=== PATIENT | male | born 1955 | race Caucasian/White ===

== ENCOUNTER 2017-10-14 18:10 | Observation (INO) | payer OTHER, MEDICAID ==
[~2017-10-14] VITALS: Ht 172.7 cm; Wt 95.3 kg
[~2017-10-14 18:10] MED LIST: ALBU0.084; ALBU18; BECL80AE9; MECL-87; PANTOPRAZOLE; PROP80CA10
[2017-10-14] MEDS ORDERED: GASTROGRAFIN 30 ML SOL XX ONE (19:30)
[2017-10-14] MEDS ORDERED: GASTROGRAFIN 120 ML SOL ONE (19:55)
[2017-10-15 00:17] VITALS: BP 121/79
== END 2017-10-15 01:09 | disposition home or self-care (01) | DRG 156 ==
LOC: ER 18:11 → OVERFLOW 22:32 → ER 10-15 01:09
PROVIDERS: ADMIT Emergency Medicine; ATTEND Emergency Medicine
DX: T17.308A Unspecified foreign body in larynx causing other injury, initial encounter (principal); T18.9XXA Foreign body of alimentary tract, part unspecified, initial encounter; Y92.89 Other specified places as the place of occurrence of the external cause; Z82.49 Family history of ischemic heart disease and other diseases of the circulatory system; Z87.891 Personal history of nicotine dependence; Z79.899 Other long term (current) drug therapy; J44.9 Chronic obstructive pulmonary disease, unspecified; I10 Essential (primary) hypertension; I70.0 Atherosclerosis of aorta
CPT/HCPCS: 71045; 74220; 99285; G0378; Q9963; 93005

== ENCOUNTER → 2017-10-23 | Outpatient (CLI) | payer OTHER, MEDICAID ==
[~2017-10-23] VITALS: Ht 30.5 cm; Wt 0.5 kg
[~2017-10-23] MED LIST changes: +ALBUTEROL SULF 2.5 MG/0.5ML(0.5%) NEB SOLN NEB ONE; +ALBUTEROL SULF 2.5 MG/0.5ML(0.5%) NEB SOLN ONE
[2017-10-23 10:55] VITALS: BP 113/74
[2017-10-23 11:20] VITALS: BP 133/84
== END | disposition home or self-care (01) ==
LOC: Rad HDHVI 09:42
PROVIDERS: ATTEND Internal Medicine Cardiovascular Disease
DX: J44.9 Chronic obstructive pulmonary disease, unspecified (principal); I73.9 Peripheral vascular disease, unspecified; R94.31 Abnormal electrocardiogram [ECG] [EKG]; B19.20 Unspecified viral hepatitis C without hepatic coma; K74.60 Unspecified cirrhosis of liver; I10 Essential (primary) hypertension; R09.89 Other specified symptoms and signs involving the circulatory and respiratory systems; G89.4 Chronic pain syndrome
CPT/HCPCS: 78452; 93005; 94640; 96374; 96375; A9500; G0463

== ENCOUNTER → 2017-10-28 | Outpatient (CLI) | payer OTHER, MEDICAID ==
[~2017-10-28] MED LIST changes: -ALBUTEROL SULF 2.5 MG/0.5ML(0.5%) NEB SOLN NEB ONE; -ALBUTEROL SULF 2.5 MG/0.5ML(0.5%) NEB SOLN ONE
== END | disposition home or self-care (01) ==
LOC: Rad HDHVI 13:48
PROVIDERS: ATTEND Internal Medicine Cardiovascular Disease
DX: I73.9 Peripheral vascular disease, unspecified (principal); R94.31 Abnormal electrocardiogram [ECG] [EKG]; R09.89 Other specified symptoms and signs involving the circulatory and respiratory systems
CPT/HCPCS: 93306; 93880

== ENCOUNTER 2018-02-16 13:04 | Inpatient (IN) | payer OTHER, MEDICAID ==
[~2018-02-16] VITALS: Ht 177.8 cm; Wt 95.8 kg
[2018-02-16 13:40] LABS: Basophils # (auto) 0 uL; Basophils % (auto) 0.8 % (0.0-2.0); Eosinophils # (auto) 0.1 uL; Eosinophils % (auto) 1.6 % (0.0-7.0); Hematocrit 44.8 % (41.0-53.0); Hemoglobin 15.1 g/dL (13.5-17.5); Lymphocytes # (auto) 0.5 uL; Mean Corpuscular Hgb Conc. 33.7 g/dL (32.0-36.0); Mean Corpuscular Volume 94.8 fL (80.0-100.0); Monocytes # (auto) 0.5 uL; Monocytes % (auto) 8.4 % (0.0-12.0); Neutrophils # (auto) 4.3 uL; Neutrophils % (auto) 79.2 % (37.0-80.0); Nucleated Red Blood Cells % 0.1 %; Platelet Count (auto) 94 10^3/uL (140-450); Red Blood Cells 4.73 10^6/uL (4.5-5.90); Red Cell Distribution Width 14.3 % (11.8-14.3); White Blood Cell 5.4 10^3/uL (4.4-10.8)
[2018-02-16] MEDS ORDERED: ASPirin 81 mg TAB PO ONE (13:45)
[2018-02-16 13:54] LABS: INR 1.06 (0.9-1.15); Partial Thromboplastin Time 25.7 sec (23.78-33.04); Prothrombin Time 11.3 sec (9.27-12.13)
[2018-02-16 14:09] LABS: Alanine Aminotransferase 27 U/L (16-61); Albumin 4.1 g/dL (3.4-5.0); Alkaline Phosphatase 81 U/L (45-117); Anion Gap 7 (5-15); Aspartate Aminotransferase 24 U/L (15-37); BUN/Creatinine Ratio 12.2; Bilirubin, Total 0.8 mg/dL (0.2-1.0); Blood Urea Nitrogen 12 mg/dL (7-18); Carbon Dioxide 23 mmol/L (21-32); Chloride 109 mmol/L (98-107); GFR African American 99 mL/min; GFR Non-African American 82 mL/min; Glucose 79 mg/dL (74-106); Potassium 4.2 mmol/L (3.5-5.1); Sodium 139 mmol/L (136-145); Total Protein 7.6 g/dL (6.4-8.2)
[2018-02-16] MEDS ORDERED: LABETALOL HCL 5 MG/ML ML 20ML VIAL IV ONE (14:15)
[2018-02-16] MEDS ORDERED: METOPROLOL TARTRATE 50 MG TAB PO ONE ×2 (15:00→17:15)
[2018-02-16] MEDS ORDERED: MORPHINE SULFATE 8mg/ml INJ SDV IV PRN (15:00)
[2018-02-16] MEDS ORDERED: METOPROLOL TARTRATE 1MG/1ML-5ML VIAL IV PRN (15:00)
[2018-02-16] MEDS ORDERED: NITROGLYCERIN 0.4 MG SL TAB SL PRN (15:00)
[2018-02-16 15:18] VITALS: BP 151/95
[2018-02-16] MEDS: FUROSEMIDE 40 MG/4 ML VIAL IV SCH (17:58)
[2018-02-16] MEDS: HYDROcodone-ACET 5/325MG TAB PO PRN (18:02)
[2018-02-16] MEDS: POTASSIUM CHL 20 Meq TABLET PO SCH (18:03)
[2018-02-16] MEDS: BUDESONIDE (INHALATION) 0.5 MG/2 ML NEB NEB SCH (18:26)
[2018-02-16] MEDS: ALBUTEROL SULF 2.5 MG/0.5ML(0.5%) NEB SOLN NEB PRN (18:26)
[2018-02-16] MEDS: IPRATROPIUM BROM 0.5 MG/2.5ML INH SOL NEB SCH ×2 (18:26→23:04)
[2018-02-16 21:00] VITALS: BP 136/85
[2018-02-16 21:16] LABS: Urine Bacteria NONE SEEN /hpf (None Seen); Urine Blood Negative /uL (Negative); Urine Mucus FEW (None Seen); Urine WBC 1 /hpf (0 - 3)
[2018-02-16] MEDS: AMITRIPTYLINE HCL 25 MG TAB PO SCH (21:50)
[2018-02-16] MEDS: APIXABAN 5 MG TAB PO SCH (21:50)
[2018-02-16] MEDS: METOPROLOL TARTRATE 50 MG TAB PO SCH (21:51)
[2018-02-16] MEDS: MONTELUKAST SODIUM 10 MG TAB PO SCH (21:53)
[2018-02-16 22:00] VITALS: BP 136/85
[2018-02-16] MEDS ORDERED: METOPROLOL TARTRATE 50 MG TAB PO SCH (22:00)
[2018-02-17] MEDS ORDERED: AMITRIP PO (04:06)
[2018-02-17] MEDS ORDERED: HYDR-4683 PO (04:06)
[2018-02-17] MEDS ORDERED: METH500T6 PO (04:06)
[2018-02-17] MEDS ORDERED: ASPI81CH43 PO (04:07)
[2018-02-17 04:48] VITALS: BP 114/85
[2018-02-17] MEDS: IPRATROPIUM BROM 0.5 MG/2.5ML INH SOL NEB SCH ×3 (06:47→19:00)
[2018-02-17] MEDS: BUDESONIDE (INHALATION) 0.5 MG/2 ML NEB NEB SCH ×2 (06:48→19:01)
[2018-02-17] MEDS: ALBUTEROL SULF 2.5 MG/0.5ML(0.5%) NEB SOLN NEB PRN ×2 (06:48→12:27)
[2018-02-17 07:11] LABS: Anion Gap 8 (5-15); BUN/Creatinine Ratio 13.3; Blood Urea Nitrogen 16 mg/dL (7-18); Calcium 8.9 mg/dL (8.5-10.1); Carbon Dioxide 26 mmol/L (21-32); Chloride 107 mmol/L (98-107); GFR African American 79 mL/min; GFR Non-African American 65 mL/min; Glucose 81 mg/dL (74-106); Sodium 141 mmol/L (136-145)
[2018-02-17] MEDS: HYDROcodone-ACET 5/325MG TAB PO PRN ×2 (08:24→18:40)
[2018-02-17 09:00] VITALS: BP 100/63
[2018-02-17] MEDS: POTASSIUM CHL 20 Meq TABLET PO SCH (09:49)
[2018-02-17] MEDS: APIXABAN 5 MG TAB PO SCH ×2 (09:49→21:53)
[2018-02-17] MEDS: FUROSEMIDE 40 MG/4 ML VIAL IV SCH (09:50)
[2018-02-17] MEDS: METOPROLOL TARTRATE 50 MG TAB PO SCH ×2 (09:51→21:54)
[2018-02-17] MEDS ORDERED: METHOCARBAMOL 500 MG TAB PO ONE (12:15)
[2018-02-17 13:00] VITALS: BP 120/86
[2018-02-17 17:00] VITALS: BP 113/86
[2018-02-17] MEDS ORDERED: METOPROLOL TARTRATE 50 MG TAB PO ONE (18:30)
[2018-02-17] MEDS: AMITRIPTYLINE HCL 25 MG TAB PO SCH (21:53)
[2018-02-17] MEDS: METHOCARBAMOL 500 MG TAB PO SCH (21:54)
[2018-02-17] MEDS: MONTELUKAST SODIUM 10 MG TAB PO SCH (21:54)
[2018-02-17 22:00] VITALS: BP 117/90
[2018-02-18 05:00] VITALS: BP 114/98
[2018-02-18 05:59] LABS: Basophils # (auto) 0 uL; Basophils % (auto) 0.6 % (0.0-2.0); Eosinophils # (auto) 0.2 uL; Eosinophils % (auto) 3.8 % (0.0-7.0); Hematocrit 45.8 % (41.0-53.0); Hemoglobin 15.4 g/dL (13.5-17.5); Lymphocytes # (auto) 0.8 uL; Lymphocytes % (auto) 16.2 % (10.0-50.0); Mean Corpuscular Hemoglobin 32.1 pg (28.0-32.0); Mean Corpuscular Hgb Conc. 33.6 g/dL (32.0-36.0); Mean Corpuscular Volume 95.3 fL (80.0-100.0); Monocytes # (auto) 0.7 uL; Monocytes % (auto) 13.3 % (0.0-12.0); Neutrophils # (auto) 3.4 uL; Neutrophils % (auto) 66.1 % (37.0-80.0); Nucleated Red Blood Cells % 0.1 %; Platelet Count (auto) 109 10^3/uL (140-450); White Blood Cell 5.2 10^3/uL (4.4-10.8)
[2018-02-18 06:11] LABS: Calcium 8.9 mg/dL (8.5-10.1)
[2018-02-18 06:13] LABS: BUN/Creatinine Ratio 17.8
[2018-02-18] MEDS: BUDESONIDE (INHALATION) 0.5 MG/2 ML NEB NEB SCH ×2 (06:55→19:07)
[2018-02-18] MEDS: IPRATROPIUM BROM 0.5 MG/2.5ML INH SOL NEB SCH ×4 (06:55→19:08)
[2018-02-18 09:00] VITALS: BP 97/64
[2018-02-18] MEDS: HYDROcodone-ACET 5/325MG TAB PO PRN ×2 (09:12→21:41)
[2018-02-18] MEDS: POTASSIUM CHL 20 Meq TABLET PO SCH (09:25)
[2018-02-18] MEDS: APIXABAN 5 MG TAB PO SCH ×2 (09:25→21:26)
[2018-02-18] MEDS: METHOCARBAMOL 500 MG TAB PO SCH ×2 (09:27→21:27)
[2018-02-18] MEDS: METOPROLOL TARTRATE 50 MG TAB PO SCH (09:54)
[2018-02-18] MEDS: FUROSEMIDE 40 MG/4 ML VIAL IV SCH (09:56)
[2018-02-18 13:00] VITALS: BP 121/88
[2018-02-18 16:58] VITALS: BP 103/75
[2018-02-18 20:00] VITALS: BP 106/76
[2018-02-18] MEDS: AMITRIPTYLINE HCL 25 MG TAB PO SCH (21:26)
[2018-02-18] MEDS: MONTELUKAST SODIUM 10 MG TAB PO SCH (21:27)
[2018-02-18] MEDS: METOPROLOL SUCCINATE XL 50 MG TAB PO SCH (21:28)
[2018-02-18 22:00] VITALS: BP 106/76
[2018-02-19] MEDS: IPRATROPIUM BROM 0.5 MG/2.5ML INH SOL NEB SCH ×4 (02:29→19:54)
[2018-02-19 05:00] VITALS: BP 110/57
[2018-02-19 05:50] LABS: Basophils # (auto) 0 uL; Basophils % (auto) 0.5 % (0.0-2.0); Eosinophils # (auto) 0.2 uL; Eosinophils % (auto) 2.8 % (0.0-7.0); Hematocrit 44.7 % (41.0-53.0); Hemoglobin 15.5 g/dL (13.5-17.5); Lymphocytes # (auto) 1.1 uL; Lymphocytes % (auto) 19.4 % (10.0-50.0); Mean Corpuscular Hemoglobin 32.9 pg (28.0-32.0); Mean Corpuscular Hgb Conc. 34.6 g/dL (32.0-36.0); Monocytes # (auto) 0.7 uL; Monocytes % (auto) 11.4 % (0.0-12.0); Neutrophils # (auto) 3.9 uL; Neutrophils % (auto) 65.9 % (37.0-80.0); Nucleated Red Blood Cells % 0.1 %; Platelet Count (auto) 130 10^3/uL (140-450); Red Cell Distribution Width 14.2 % (11.8-14.3); White Blood Cell 5.9 10^3/uL (4.4-10.8)
[2018-02-19 06:03] LABS: BUN/Creatinine Ratio 21.5; Calcium 8.7 mg/dL (8.5-10.1); Potassium 4.2 mmol/L (3.5-5.1)
[2018-02-19] MEDS: BUDESONIDE (INHALATION) 0.5 MG/2 ML NEB NEB SCH ×2 (06:41→19:54)
[2018-02-19] MEDS: HYDROcodone-ACET 5/325MG TAB PO PRN ×2 (07:03→21:26)
[2018-02-19 08:00] VITALS: BP 100/82
[2018-02-19] MEDS: APIXABAN 5 MG TAB PO SCH ×2 (09:39→21:23)
[2018-02-19] MEDS: METHOCARBAMOL 500 MG TAB PO SCH ×2 (09:39→21:23)
[2018-02-19] MEDS: METOPROLOL SUCCINATE XL 50 MG TAB PO SCH ×2 (09:40→21:25)
[2018-02-19] MEDS: FUROSEMIDE 40 MG/4 ML VIAL IV SCH (09:41)
[2018-02-19] MEDS: POTASSIUM CHL 20 Meq TABLET PO SCH (09:41)
[2018-02-19 12:00] VITALS: BP_SYST 155; BP_SYST 99; BP_DIAS 69; BP_DIAS 71
[2018-02-19 17:00] VITALS: BP 112/82
[2018-02-19] MEDS: AMITRIPTYLINE HCL 25 MG TAB PO SCH (21:23)
[2018-02-19] MEDS: MONTELUKAST SODIUM 10 MG TAB PO SCH (22:00)
[2018-02-19 22:54] VITALS: BP 116/80
[2018-02-20] MEDS: IPRATROPIUM BROM 0.5 MG/2.5ML INH SOL NEB SCH ×3 (00:59→11:52)
[2018-02-20 05:40] VITALS: BP 111/74
[2018-02-20 05:42] LABS: Basophils # (auto) 0.1 uL; Basophils % (auto) 0.9 % (0.0-2.0); Eosinophils # (auto) 0.2 uL; Eosinophils % (auto) 3.7 % (0.0-7.0); Hematocrit 44.7 % (41.0-53.0); Hemoglobin 15.1 g/dL (13.5-17.5); Lymphocytes # (auto) 1.2 uL; Lymphocytes % (auto) 20.5 % (10.0-50.0); Mean Corpuscular Hemoglobin 32.2 pg (28.0-32.0); Mean Corpuscular Hgb Conc. 33.7 g/dL (32.0-36.0); Mean Corpuscular Volume 95.5 fL (80.0-100.0); Monocytes # (auto) 0.7 uL; Monocytes % (auto) 12.7 % (0.0-12.0); Neutrophils # (auto) 3.5 uL; Neutrophils % (auto) 62.2 % (37.0-80.0); Nucleated Red Blood Cells % 0.1 %; Platelet Count (auto) 124 10^3/uL (140-450); Red Blood Cells 4.68 10^6/uL (4.5-5.90); Red Cell Distribution Width 13.7 % (11.8-14.3); White Blood Cell 5.6 10^3/uL (4.4-10.8)
[2018-02-20 05:58] LABS: Calcium 8.7 mg/dL (8.5-10.1)
[2018-02-20 06:05] LABS: BUN/Creatinine Ratio 18.8
[2018-02-20] MEDS: BUDESONIDE (INHALATION) 0.5 MG/2 ML NEB NEB SCH (06:41)
[2018-02-20 08:39] VITALS: BP 109/84
[2018-02-20] MEDS: POTASSIUM CHL 20 Meq TABLET PO SCH (10:00)
[2018-02-20] MEDS: APIXABAN 5 MG TAB PO SCH (10:00)
[2018-02-20] MEDS: METHOCARBAMOL 500 MG TAB PO SCH (10:00)
[2018-02-20] MEDS: METOPROLOL SUCCINATE XL 50 MG TAB PO SCH (10:00)
== END 2018-02-20 12:00 | disposition home or self-care (01) | DRG 291 ==
LOC: ER 13:04 → TELE 13:05 → UNDOADMIN 13:05 → TELE-WESTW 20:45
PROVIDERS: ADMIT Internal Medicine; ATTEND Internal Medicine
DX: I13.0 Hypertensive heart and chronic kidney disease with heart failure and stage 1 through stage 4 chronic kidney disease, or unspecified chronic kidney disease (principal); I50.33 Acute on chronic diastolic (congestive) heart failure; D69.6 Thrombocytopenia, unspecified; D68.69 Other thrombophilia; I48.1 Persistent atrial fibrillation; I48.92 Unspecified atrial flutter; J44.1 Chronic obstructive pulmonary disease with (acute) exacerbation; N18.1 Chronic kidney disease, stage 1; K74.60 Unspecified cirrhosis of liver; B18.2 Chronic viral hepatitis C; E66.9 Obesity, unspecified; E78.5 Hyperlipidemia, unspecified; I44.0 Atrioventricular block, first degree; Z79.01 Long term (current) use of anticoagulants; Z82.49 Family history of ischemic heart disease and other diseases of the circulatory system; Z87.891 Personal history of nicotine dependence; Z68.30 Body mass index [BMI] 30.0-30.9, adult; Z79.899 Other long term (current) drug therapy
CPT/HCPCS: 36415; 71046; 80048; 80053; 81001; 83735; 83880; 84443; 84484; 85025; 85610; 85730; 93005; 94640; 94761; 96374; 96375; 99291

== ENCOUNTER 2018-11-16 18:03 | Emergency (ER) | payer OTHER, MEDICAID ==
[~2018-11-16] VITALS: Ht 172.7 cm; Wt 97.5 kg
[~2018-11-16 18:03] MED LIST changes: +AMITRIP PO; +ASPI81CH43 PO; +HYDR-4683 PO; -MECL-87; +METH500T6 PO; -PANTOPRAZOLE; -PROP80CA10
[2018-11-16 18:20] VITALS: BP 167/95
[2018-11-16] MEDS ORDERED: methylPREDNISolone SOD SUCC 125 MG/2 ML VL IV ONE (18:30)
[2018-11-16 19:14] LABS: Basophils # (auto) 0 uL; Basophils % (auto) 0.6 % (0.0-2.0); Eosinophils # (auto) 0.1 uL; Eosinophils % (auto) 1.7 % (0.0-7.0); Hemoglobin 13.6 g/dL (13.5-17.5); Lymphocytes # (auto) 0.4 uL; Lymphocytes % (auto) 9.2 % (10.0-50.0); Mean Corpuscular Hemoglobin 29.6 pg (28.0-32.0); Mean Corpuscular Hgb Conc. 32.5 g/dL (32.0-36.0); Mean Corpuscular Volume 91.2 fL (80.0-100.0); Monocytes # (auto) 0.4 uL; Monocytes % (auto) 9.9 % (0.0-12.0); Neutrophils # (auto) 3.4 uL; Neutrophils % (auto) 78.6 % (37.0-80.0); Platelet Count (auto) 72 10^3/uL (140-450); Red Blood Cells 4.61 10^6/uL (4.5-5.90); Red Cell Distribution Width 15.2 % (11.8-14.3); White Blood Cell 4.3 10^3/uL (4.4-10.8)
[2018-11-16 19:28] LABS: Albumin 3.6 g/dL (3.4-5.0); Anion Gap 4 (5-15); Blood Urea Nitrogen 10 mg/dL (7-18); Calcium 8.1 mg/dL (8.5-10.1); Carbon Dioxide 29 mmol/L (21-32); Chloride 105 mmol/L (98-107); Glucose 98 mg/dL (74-106); Potassium 4.7 mmol/L (3.5-5.1); Sodium 138 mmol/L (136-145)
[2018-11-16 19:32] LABS: Alanine Aminotransferase 22 U/L (16-61); Alkaline Phosphatase 89 U/L (45-117); Aspartate Aminotransferase 26 U/L (15-37); BUN/Creatinine Ratio 8.2; Bilirubin, Total 0.8 mg/dL (0.2-1.0); GFR African American 77 mL/min; GFR Non-African American 64 mL/min
== END 2018-11-16 19:47 | disposition left against medical advice (07) ==
LOC: EDBD 18:03 → ER 18:08
DX: J44.1 Chronic obstructive pulmonary disease with (acute) exacerbation (principal); I11.0 Hypertensive heart disease with heart failure; I50.9 Heart failure, unspecified; Z90.49 Acquired absence of other specified parts of digestive tract
CPT/HCPCS: 36415; 80053; 84484; 85025; 94761; 96374; 99283; J2930

== ENCOUNTER 2020-03-04 08:14 | Emergency (ER) | payer OTHER, MEDICAID ==
[~2020-03-04] VITALS: Ht 172.7 cm; Wt 102.1 kg
[~2020-03-04 08:14] MED LIST changes: -HYDR-4683 PO; +HYDR-4833 PO; +METH500T22 PO; -METH500T6 PO
[2020-03-04 08:19] VITALS: BP 118/70
[2020-03-04 09:23] LABS: Basophils # (auto) 0 10 ^3/uL (0-0.2); Basophils % (auto) 0.6 % (0.0-2.0); Eosinophils # (auto) 0.2 10 ^3/uL (0-0.8); Eosinophils % (auto) 3.9 % (0.0-7.0); Hematocrit 45.2 % (41.0-53.0); Hemoglobin 14.8 g/dL (13.5-17.5); Lymphocytes # (auto) 0.6 10 ^3/uL (0.4-5.4); Lymphocytes % (auto) 12.9 % (10.0-50.0); Mean Corpuscular Hgb Conc. 32.8 g/dL (32.0-36.0); Mean Corpuscular Volume 94.4 fL (80.0-100.0); Monocytes # (auto) 0.5 10 ^3/uL (0-1.3); Monocytes % (auto) 10.9 % (0.0-12.0); Neutrophils # (auto) 3.3 10 ^3/uL (1.6-8.6); Neutrophils % (auto) 71.7 % (37.0-80.0); Nucleated Red Blood Cells % 0.1 %; Platelet Count (auto) 106 10^3/uL (140-450); Red Blood Cells 4.78 10^6/uL (4.5-5.90); Red Cell Distribution Width 13.7 % (11.8-14.3); White Blood Cell 4.6 10^3/uL (4.4-10.8)
[2020-03-04 09:39] LABS: Albumin 3.6 g/dL (3.4-5.0); Anion Gap 5 (5-15); Blood Urea Nitrogen 14 mg/dL (7-18); Calcium 8.4 mg/dL (8.5-10.1); Carbon Dioxide 28 mmol/L (21-32); Chloride 108 mmol/L (98-107); Glucose 114 mg/dL (74-106); Magnesium 2.5 mg/dL (1.6-2.6); Potassium 3.9 mmol/L (3.5-5.1); Sodium 141 mmol/L (136-145)
[2020-03-04 09:45] LABS: Alanine Aminotransferase 20 U/L (16-61); Alkaline Phosphatase 66 U/L (45-117); Aspartate Aminotransferase 12 U/L (15-37); BUN/Creatinine Ratio 12.5; Bilirubin, Total 0.7 mg/dL (0.2-1.0); GFR African American 85 mL/min; GFR Non-African American 70 mL/min; Total Protein 6.8 g/dL (6.4-8.2)
[2020-03-05] MEDS ORDERED: HYDR-392 PO (08:54)
[2020-03-05] MEDS ORDERED: CARV6.25 PO (08:54)
[2020-03-05] MEDS ORDERED: PRAV20TA3 PO (08:54)
[2020-03-05] MEDS ORDERED: LIDO4PAD8 EX (08:54)
[2020-03-05] MEDS ORDERED: METH750T3 PO (08:54)
[2020-03-05] MEDS ORDERED: AMIO100T3 OR (08:54)
[2020-03-05] MEDS ORDERED: AMIT75TA62 PO (08:54)
[2020-03-05] MEDS ORDERED: APIX2.5T PO (08:54)
[2020-03-05] MEDS ORDERED: NALO4SPR2 (08:54)
[2020-03-05] MEDS ORDERED: ACLI1AER2 IN (08:54)
[2020-03-05] MEDS ORDERED: LISI10TA6 PO (08:54)
[2020-03-09] MEDS ORDERED: MET50T PO (12:06)
[2020-03-09] MEDS ORDERED: APIX5TAB PO (12:06)
[2020-03-09] MEDS ORDERED: ASPI81CH43 PO (12:06)
[2020-03-09] MEDS ORDERED: AMIO200T4 PO (12:06)
== END 2020-03-04 11:28 | disposition home or self-care (01) ==
LOC: ER 08:14
DX: I47.1 Supraventricular tachycardia (principal); I11.0 Hypertensive heart disease with heart failure; I50.9 Heart failure, unspecified; J44.9 Chronic obstructive pulmonary disease, unspecified; E78.5 Hyperlipidemia, unspecified; I25.2 Old myocardial infarction; Z90.49 Acquired absence of other specified parts of digestive tract; Z95.810 Presence of automatic (implantable) cardiac defibrillator; Z87.891 Personal history of nicotine dependence
CPT/HCPCS: 36415; 71045; 80053; 83735; 84443; 84484; 85025; 93005

== ENCOUNTER 2020-03-04 18:08 | Inpatient (IN) | payer OTHER, MEDICAID ==
[~2020-03-04] VITALS: Ht 172.7 cm; Wt 102.4 kg
[2020-03-04 18:50] LABS: Basophils # (auto) 0 10 ^3/uL (0-0.2); Basophils % (auto) 0.6 % (0.0-2.0); Eosinophils # (auto) 0.2 10 ^3/uL (0-0.8); Eosinophils % (auto) 3.1 % (0.0-7.0); Hematocrit 45.1 % (41.0-53.0); Hemoglobin 14.7 g/dL (13.5-17.5); Lymphocytes # (auto) 0.7 10 ^3/uL (0.4-5.4); Lymphocytes % (auto) 13.8 % (10.0-50.0); Mean Corpuscular Hemoglobin 30.9 pg (28.0-32.0); Mean Corpuscular Hgb Conc. 32.5 g/dL (32.0-36.0); Mean Corpuscular Volume 95.1 fL (80.0-100.0); Monocytes # (auto) 0.6 10 ^3/uL (0-1.3); Monocytes % (auto) 11.4 % (0.0-12.0); Neutrophils # (auto) 3.5 10 ^3/uL (1.6-8.6); Neutrophils % (auto) 71.1 % (37.0-80.0); Nucleated Red Blood Cells % 0.1 %; Platelet Count (auto) 99 10^3/uL (140-450); Red Blood Cells 4.74 10^6/uL (4.5-5.90); Red Cell Distribution Width 13.9 % (11.8-14.3)
[2020-03-04 19:07] LABS: Alanine Aminotransferase 20 U/L (16-61); Albumin 3.6 g/dL (3.4-5.0); Anion Gap 5 (5-15); BUN/Creatinine Ratio 13.4; Blood Urea Nitrogen 15 mg/dL (7-18); Calcium 8.3 mg/dL (8.5-10.1); Carbon Dioxide 29 mmol/L (21-32); Chloride 106 mmol/L (98-107); GFR African American 85 mL/min; GFR Non-African American 70 mL/min; Glucose 97 mg/dL (74-106); Magnesium 2.3 mg/dL (1.6-2.6); Potassium 4.6 mmol/L (3.5-5.1); Sodium 140 mmol/L (136-145)
[2020-03-04 19:12] LABS: Alkaline Phosphatase 67 U/L (45-117); Aspartate Aminotransferase 14 U/L (15-37); Bilirubin, Total 0.5 mg/dL (0.2-1.0)
[2020-03-04] MEDS ORDERED: LISINOPRIL 10 MG TAB PO ONE (21:15)
[2020-03-04] MEDS ORDERED: CARVEDILOL 3.125 MG TAB PO ONE (21:15)
[2020-03-04] MEDS: PRAVASTATIN SODIUM 20 MG TAB PO SCH ×2 (21:37→21:41)
[2020-03-05] MEDS ORDERED: ONDANSETRON HCL 4 MG/2 ML VIAL IV ONE (00:45)
[2020-03-05] MEDS ORDERED: MORPHINE SULFATE 4 MG/ML SYR/VIAL IV ONE (00:45)
[2020-03-05] MEDS ORDERED: ONDANSETRON HCL 4 MG/2 ML VIAL IV PRN (02:30)
[2020-03-05] MEDS ORDERED: ACETAMINOPHEN 325 MG TAB PO PRN (02:30)
[2020-03-05] MEDS ORDERED: HYDROcodone-ACET 5/325MG TAB PO PRN (02:30)
[2020-03-05] MEDS ORDERED: DOCUSATE SOD 100 MG CAP PO PRN (02:30)
[2020-03-05] MEDS: SODIUM CHLORIDE 0.9% 1,000 ML IV SCH ×2 (02:48→21:09)
[2020-03-05 02:57] VITALS: BP 154/79
[2020-03-05] MEDS: IPRATROPIUM BROM 0.5 MG/2.5ML INH SOL NEB PRN ×3 (04:48→21:48)
[2020-03-05] MEDS: ALBUTEROL SULF 2.5 MG/0.5ML(0.5%) NEB SOLN NEB PRN ×3 (04:48→21:48)
[2020-03-05 06:29] LABS: Basophils # (auto) 0 10 ^3/uL (0-0.2); Basophils % (auto) 0.6 % (0.0-2.0); Eosinophils # (auto) 0.2 10 ^3/uL (0-0.8); Hematocrit 44.5 % (41.0-53.0); Hemoglobin 14.3 g/dL (13.5-17.5); Lymphocytes # (auto) 0.8 10 ^3/uL (0.4-5.4); Lymphocytes % (auto) 17.1 % (10.0-50.0); Mean Corpuscular Hemoglobin 31.1 pg (28.0-32.0); Mean Corpuscular Hgb Conc. 32.2 g/dL (32.0-36.0); Mean Corpuscular Volume 96.6 fL (80.0-100.0); Monocytes # (auto) 0.6 10 ^3/uL (0-1.3); Neutrophils # (auto) 3.2 10 ^3/uL (1.6-8.6); Neutrophils % (auto) 65.3 % (37.0-80.0); Nucleated Red Blood Cells % 0.1 %; Platelet Count (auto) 77 10^3/uL (140-450); Red Cell Distribution Width 14.2 % (11.8-14.3); White Blood Cell 4.9 10^3/uL (4.4-10.8)
[2020-03-05 06:57] LABS: Cholesterol 146 mg/dL (< 200); HDL Cholesterol 52 mg/dL (40-59); LDL Cholesterol 82 mg/dL (< 100); Triglycerides 91 mg/dL (< 150)
[2020-03-05] MEDS ORDERED: METH750T3 PO ×2 (08:54)
[2020-03-05] MEDS ORDERED: AMIO100T3 OR ×2 (08:54)
[2020-03-05] MEDS ORDERED: LISI-648 PO ×2 (08:54)
[2020-03-05] MEDS ORDERED: LIDO4PAD8 EX ×2 (08:54)
[2020-03-05] MEDS ORDERED: HYDR-392 PO ×2 (08:54)
[2020-03-05] MEDS ORDERED: NALO4SPR2 ×2 (08:54)
[2020-03-05] MEDS ORDERED: CARV6.25 PO ×2 (08:54)
[2020-03-05] MEDS ORDERED: PRAV20TA3 PO ×2 (08:54)
[2020-03-05] MEDS ORDERED: AMIT75TA62 PO ×2 (08:54)
[2020-03-05] MEDS ORDERED: ACLI1AER2 IN ×2 (08:54)
[2020-03-05] MEDS ORDERED: APIX2.5T PO ×2 (08:54)
[2020-03-05] MEDS ORDERED: AMIODARONE HCL 150 MG in D5W 5% 100 ML IV ONE (09:00)
--- NOTE | 2020-03-05 09:00 | NUR ---
PT ASSESSED FOR PRN HHN TX. PT IS ON 94%, HR 107, RR 20. NO S/S OF RESPIRATORY DISTRESS. PRN TX NOT INDICATED AT THIS TIME. WILL CONTINUE TO MONITOR.
[2020-03-05] MEDS ORDERED: AMIODARONE 450mg/250ml AE 250 ML IV SCH (09:06)
[2020-03-05] MEDS: HYDROcodone-ACET 5/325MG TAB PO SCH ×2 (09:41→22:11)
[2020-03-05] MEDS: FUROSEMIDE 40 MG/4 ML VIAL IV SCH (10:00)
[2020-03-05] MEDS: ASPirin 81 mg TAB PO SCH (10:18)
[2020-03-05] MEDS ORDERED: MAGNESIUM SULFATE 1GM/100ML 100 ML IV ONE (11:00)
[2020-03-05] MEDS ORDERED: METOPROLOL TARTRATE 1MG/1ML-5ML VIAL IV PRN (14:00)
[2020-03-05] MEDS: MEXILETINE HYDROCHLORIDE 150 MG CAP PO SCH ×2 (14:13→22:11)
[2020-03-05 14:42] LABS: Urine Bacteria NONE SEEN /hpf (None Seen); Urine Blood TRACE /uL (Negative); Urine Specific Gravity 1.009 (1.001-1.035); Urine WBC 1 /hpf (0 - 3)
[2020-03-05 14:52] LABS: Amphetamine Screen, Urine NEGATIVE (NEGATIVE); Barbiturate Scree,Urine NEGATIVE (NEGATIVE); Benzodiazephine Screen, Urine POSITIVE (NEGATIVE); Cannabinoid Screen, Urine NEGATIVE (NEGATIVE); Cocaine Screen, Urine NEGATIVE (NEGATIVE); Opiate Scree,Urine POSITIVE (NEGATIVE); Phencyclidine Screen, Urine NEGATIVE (NEGATIVE)
[2020-03-05 15:00] LABS: Alcohol, Urine < 3.0 mg/dL (0-10)
[2020-03-05] MEDS: AMIODARONE 450mg/250ml AE 250 ML IV SCH (15:50)
[2020-03-05] MEDS: ATORVASTATIN 20 MG TAB PO SCH (18:12)
[2020-03-05] MEDS: MORPHINE SULF INJ 2 MG/ML SYRINGE 1ML IV PRN (18:12)
[2020-03-05] MEDS: AMITRIPTYLINE HCL 25 MG TAB PO SCH (22:11)
--- NOTE | 2020-03-06 06:40 | NUR ---
Respiratory note: PT ASSESSED FOR PRN MED NEB TX, NO TX DESIRED NOR INDICATED. PT AWAKE/SITTING IN BED WITH NO NOTED DISTRESS, DENIES ANY CURRENT SOB. PT AND RN AWARE TO HAVE RT PAGED IF NEEDED. HR 106 RR 16 SPO2 95% ON 2.5L N/C BREATH SOUNDS ARE DIMINISHED T/O.
[2020-03-06] MEDS: METOPROLOL TARTRATE 50 MG TAB PO SCH ×5 (07:12→23:48)
[2020-03-06 07:18] LABS: Calcium 8.4 mg/dL (8.5-10.1)
[2020-03-06 07:21] LABS: BUN/Creatinine Ratio 15.6
[2020-03-06] MEDS: MEXILETINE HYDROCHLORIDE 150 MG CAP PO SCH ×3 (07:25→21:50)
[2020-03-06] MEDS: AMIODARONE 450mg/250ml AE 250 ML IV SCH ×2 (08:09→21:06)
[2020-03-06] MEDS: ASPirin 81 mg TAB PO SCH (10:08)
[2020-03-06] MEDS: FUROSEMIDE 40 MG/4 ML VIAL IV SCH (10:09)
[2020-03-06] MEDS: HYDROcodone-ACET 5/325MG TAB PO SCH ×2 (10:09→21:45)
[2020-03-06] MEDS ORDERED: LEVALBUTEROL HCL 1.25 MG/3 ML NEB ONE (10:51)
[2020-03-06] MEDS: SODIUM CHLORIDE 0.9% 1,000 ML IV SCH (12:06)
[2020-03-06] MEDS: MORPHINE SULF INJ 2 MG/ML SYRINGE 1ML IV PRN (12:12)
[2020-03-06] MEDS ORDERED: LEVALBUTEROL HCL 1.25 MG/3 ML NEB NEB SCH ×2 (14:00)
[2020-03-06] MEDS ORDERED: MIDAZOLAM HCL 1MG/1ML-2 ML VIAL IV ONE (15:15)
--- NOTE | 2020-03-06 16:25 | NUR ---
BIAS CUTTER AT BEDSIDE/AWAITING PATIENT ARRIVAL TO [facility] AWAITING PATIENT'S ARRIVAL FROM ER, DR MAURICIO VISITS [facility] NURSE STATION AND UPDATES THIS NURSE WITH PATIENT STATUS AND REQUEST TO DO FIORELLA AND CARDIOVERSION TOMORROW MORNING. Addendum: 03/06/20 at 1716 by Floridalma Peters RN REVIEWED ECHO AND REPORTED TO THIS NURSE "ECHO LOOKS GOOD".
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
--- NOTE | 2020-03-06 17:30 | NUR ---
OPENING NOTE PT AWAKE AND ALERT WATCHING TV. BREATHING EVEN AND UNLABORED, NO DISTRESS NOTED. BED LOCKED IN PLACE FOR SAFETY. CALL LIGHT IS WITHIN REACH AND PT AWARE ON POC. COMPLETE PHYSICAL ASSESSMENT UNDER INTERVENTIONS.
--- NOTE | 2020-03-06 18:18 | NUR ---
CALL RECEIVED FROM DR DOCKERY TO VERIFY ORDERS FOR CARDIOVERSION AND FIORELLA TOMORROW MORNING AT 0830. ORDERS RECEIVED FOR MEDICATION TO BE READY FOR PROCEDURE TOMORROW: 75 MCG FENTANYL IV X1 4 MG VERSED IV X1 50 BENADRYL IV X1 ROYA CHARGE NURSE WILL NOTIFY NIGHT LINOLEUM TILE LAYER, (LINOLEUM TILE LAYER NOT AVAILABLE DAY CREATIVE COORDINATOR).
[2020-03-06] MEDS: HYDROcodone-ACET 7.5/325MG TAB PO PRN (18:26)
[2020-03-06] MEDS: ATORVASTATIN 20 MG TAB PO SCH (18:27)
--- NOTE | 2020-03-06 19:28 | NUR ---
END OF SHIFT NOTE PATIENT SITTING UP IN CHAIR EATING DINNER. PATIENT ALERT AND ORIENTED X4, NO DISTRESS NOTED, RESPIRATIONS EVEN AND UNLABORED, PATIENT CONTINUES ON 4 LITERS OXYGEN VIA NASAL CANNULA. PATIENT CARE ENDORSED TO MANAGER EXCHANGE RN INCLUDING CONSENTING FOR FIORELLA/CARDIOVERSION PROCEDURE. MANAGER EXCHANGE COMPONENT PREP OPERATOR AWARE OF PROCEDURE TO BE DONE AT [address] DOCKERY AND DR MI. AWAITING PICK OF OF ORDERS AND PATIENT DEMOGRAPHICS - PAPERWORK HANDED TO MANAGER EXCHANGE RN.
[2020-03-06 20:00] VITALS: BP 99/58
[2020-03-06] MEDS: PRAVASTATIN SODIUM 20 MG TAB PO SCH (21:45)
[2020-03-06] MEDS: AMITRIPTYLINE HCL 25 MG TAB PO SCH (21:51)
[2020-03-07] VITALS: BP_SYST 102; BP_SYST 114; BP_DIAS 69; BP_DIAS 70
[2020-03-07] MEDS: AMIODARONE 450mg/250ml AE 250 ML IV SCH ×2 (01:19→14:29)
[2020-03-07 04:00] VITALS: BP 103/64
--- NOTE | 2020-03-07 05:59 | NUR ---
RT CALLED PT REQUESTING BREATHING TREATMENT. PULSE OX SHOWS 98% AND NO DISTRESS NOTED. COUGH PRESENTED WHICH PT STATES JUST STARTED.
[2020-03-07] MEDS: MEXILETINE HYDROCHLORIDE 150 MG CAP PO SCH ×3 (06:00→21:35)
[2020-03-07] MEDS: LEVALBUTEROL HCL 1.25 MG/3 ML NEB NEB SCH ×3 (06:17→18:31)
[2020-03-07] MEDS: METOPROLOL TARTRATE 50 MG TAB PO SCH ×3 (06:39→17:36)
[2020-03-07] MEDS: HYDROcodone-ACET 7.5/325MG TAB PO PRN ×2 (06:39→14:34)
[2020-03-07] MEDS ORDERED: LIDOCAINE VISCOUS 2% 15ML UD ONE (07:47)
[2020-03-07 08:00] VITALS: BP 97/67
[2020-03-07] MEDS ORDERED: MIDAZOLAM HCL 5 MG/ML-1ML VIAL IV ONE ×2 (08:00→09:30)
[2020-03-07] MEDS ORDERED: LIDOCAINE VISCOUS 2% 15ML UD PO ONE (08:00)
[2020-03-07] MEDS ORDERED: diphenhdrAMINE HCL 50 MG/1 ML VL IV ONE ×2 (08:00→09:30)
[2020-03-07] MEDS ORDERED: fentaNYL CITRATE 100 MCG/2 ML VL IV ONE ×2 (08:00→09:30)
--- NOTE | 2020-03-07 08:00 | NUR ---
ASSESS- PT. LYING IN BED AWAKE, ALERT AND ORIENTED TIMES FOUR. PT. HAS CHRONIC BACK PAIN, PREVIOUSLY MED. LUNGS CLEAR TEJAS. INSPIRATORY AND EXPIRATORY. NO SOB. O2 3L N/C. PT. HAS PRODUCTIVE COUGH. ABD. FIRM, NON-TENDER, ROUND. BOWEL SOUNDS ALL FOUR QUADRANTS. NO N/V. F/C TO GRAVITY WITH CLEAR YELLOW URINE. RADIAL PULSES STRONG, PALPABLE TEJAS. DORSALIS PEDAL PULSES STRONG, PALPABLE TEJAS. NO EDEMA. SKIN INTACT. PT. MOVES UPPER AND LOWER EXTREMITIES WITHOUT DIFFICULTY. ABLE TO TURN SELF IN BED. ON AMIODARONE GTT. AT 0.5 MG./MIN. SR, HR 90'S.
[2020-03-07] MEDS ORDERED: MIDAZOLAM HCL 1MG/1ML-2 ML VIAL ONE (08:47)
--- NOTE | 2020-03-07 08:52 | NUR ---
DR. DOCKERY AND DR. MAURICIO AT FOR FIORELLA AND CARDIOVERSION WITH MOTOR RACER AND [facility] FOR [facility]. CONSENT SIGNED BY PT. PREVIOUSLY FOR PROCEDURE AND MODERATE SEDATION. PACER PADS PLACED ON PT. AND ATTACHED TO CRASH CART AT BS, SUCTION SET UP. 02 2L N/C. PT. GIVEN A TOTAL OF VERSED 4MG. IVP AND FENTANYL [address] DOCKERY SAID HE WILL CARDIOVERT PT. TOMORROW AND STARTED PT. ON ELAQUIS 5MG. PO BID. ORDERED MEDS FOR MODERATE SEDATION FOR TOMORROW. OK TO RESUME CARDIAC DIET AND WILL BE NPO AFTER MIDNIGHT TONIGHT. DR. MAURICIO SAID TO KEEP AMIODARONE GTT. 0.5MG./MIN. CONTINUOUS UNTIL TOMORROW AT LEAST.
[2020-03-07] MEDS: APIXABAN 5 MG TAB PO SCH ×2 (09:57→21:35)
[2020-03-07] MEDS: FUROSEMIDE 40 MG/4 ML VIAL IV SCH (09:57)
[2020-03-07] MEDS: ASPirin 81 mg TAB PO SCH (09:57)
[2020-03-07] MEDS ORDERED: LEVALBUTEROL HCL 1.25 MG/3 ML NEB NEB PRN (10:15)
[2020-03-07] MEDS: HYDROcodone-ACET 5/325MG TAB PO SCH ×2 (10:30→21:36)
--- NOTE | 2020-03-07 10:55 | NUR ---
DR. LAIRD Provider/Hospitalist at bedside. GAVE UPDATE ON PT.
[2020-03-07 12:00] VITALS: BP 95/74
--- NOTE | 2020-03-07 12:23 | NUR ---
Est energy needs [id number] kcal (25-30 kcal/kg IBW 70kg) Est protein needs 70-77g (1-1.1g/kg IBW 70kg) Will reassess prn Addendum: 03/07/20 at [address] Amended: Links added.
--- NOTE | 2020-03-07 14:34 | NUR ---
PT. REPORTING BACK PAIN 6 ON A SCALE OF 0-10. MED. WITH NORCO 7.5 MG. PO.
--- NOTE | 2020-03-07 15:34 | NUR ---
PAIN HAS DECREASED TO A 4. PT. HAS CHRONIC PAIN AND STATED THAT IS DOES NOT GO BELOW A 4. PAIN HAS IMPROVED PT. STATED.
[2020-03-07 16:00] VITALS: BP 99/74
[2020-03-07 20:00] VITALS: BP 116/80
[2020-03-07] MEDS: AMITRIPTYLINE HCL 25 MG TAB PO SCH (21:35)
[2020-03-07] MEDS: ATORVASTATIN 20 MG TAB PO SCH (21:36)
[2020-03-08] VITALS (7 sets, daily range): BP systolic 81–116; BP diastolic 41–73
[2020-03-08] MEDS: HYDROcodone-ACET 7.5/325MG TAB PO PRN ×3 (00:22→16:40)
[2020-03-08] MEDS: MEXILETINE HYDROCHLORIDE 150 MG CAP PO SCH ×2 (05:39→05:48)
[2020-03-08] MEDS: METOPROLOL TARTRATE 50 MG TAB PO SCH ×4 (05:39→22:00)
[2020-03-08] MEDS: AMIODARONE 450mg/250ml AE 250 ML IV SCH (05:55)
[2020-03-08] MEDS: LEVALBUTEROL HCL 1.25 MG/3 ML NEB NEB SCH ×2 (06:24→19:22)
[2020-03-08] MEDS ORDERED: MIDAZOLAM HCL 1MG/1ML-2 ML VIAL ONE (09:07)
--- NOTE | 2020-03-08 09:49 | NUR ---
PT TO HAVE A BEDSIDE CARDIOVERSION. PT IS CONNECTED TO THE CRASH CART , ON SUPPLEMENTAL O2 AT 2 L/M VIA NC. PT WTIH 2:1 ATRIAL FLUTTER AND ON AMIODARONE AT 0.5 MG/MIN 0740 91-17-97% 102/72 0949 98-14-97% 100/68 PT GIVEN VERSED 1 MG IVP AND FENTANYL 25 MCG IV 0952 98-12-97% 106/71 PT GIVEN BENADRYL 50 MG IV 0953 96-21-97% 106/71 PT GIVEN VERSED 1MG IV 0954 96-16-94% 105/74 0958 96-14-97% 98/68 FENTANYL 25 MCG IV 1000 96-14 96% 99/62 VERSED 1 MG IV NS BOLUS 100ML OVER 30 MINUTES 1002 CARDIOVERSION AT 40 JOULES/ 100% AV PACED AT 75 1005 79-14-96% 108/72 1010 78-13-94% 80/57 1013 79-15-95% 82/61 1015 76-16-95% 82/58 1020 76-15-97% 100/64 1025 76-15-97% 101/73 PT AWAKE AND ALERT AND TALKING/DENIES ANY CHEST PAIN/ IV BOLUS COMPLETED 1030 75-16-97% 98/66 GIVEN A FEW ICE CHIPS 1035 80-16-97% 106/67 1040 77-16-96% 102/65 1045 77-24-98% 91/63 1050 75-17-98% 108/68 1055 76-13-97% 98/65 1100 76-18-98% 97/65 1105 75-23-97% 88/52 WITH PT SITTING IN HIGH FOWLERS POSITION TO EAT A JELLO REPORTED OFF TO PT'S BEDSIDE RN, ARVIND
[2020-03-08] MEDS: AMIODARONE HCL 200 MG TAB PO SCH ×2 (11:17→21:59)
[2020-03-08] MEDS: APIXABAN 5 MG TAB PO SCH ×2 (11:17→22:00)
[2020-03-08] MEDS: ASPirin 81 mg TAB PO SCH (11:17)
[2020-03-08] MEDS: FUROSEMIDE 40 MG/4 ML VIAL IV SCH (11:18)
[2020-03-08] MEDS: HYDROcodone-ACET 5/325MG TAB PO SCH ×2 (11:18→22:01)
--- NOTE | 2020-03-08 14:26 | NUR ---
Resumed care at 0730, orders reviewed and ongoing assessments being done. Upon arrival, in bed and in no acute distress. Scheduled for Cardioversion with Dr. Ackerman and maintained NPO for procedure. Procedure initiated 949. Stiven Greenfield from [employer] and Laura Andrade RN at bedside. Procedure completed without incident and successful. Now being paced at 75 beats/hour. Had fully woken up and in no acute distress. See Laura mechanical cad drafter of procedure.
--- NOTE | 2020-03-08 15:45 | NUR ---
REPORT FOR CONTINUATION OF CARE AND PATIENT STATUS GIVEN BY DEREK LOPEZ RN, RECEIVED BY JOHANA WOOD (COVERING DURING LUNCH)
--- NOTE | 2020-03-08 15:51 | NUR ---
Stable post cardioversion and in no acute distress. Per Dr. Colin mejia to transfer to TELE. Report given to Xu WOOD at 6427.
--- NOTE | 2020-03-08 16:12 | NUR ---
Transferred to room 277 A. Transferred in bed and arrived to room without incident with all personal belongings. Nina WOOD met in room.
--- NOTE | 2020-03-08 16:13 | NUR ---
Transferred and received to room 277 A. via bed with all personal belongings,no distress no discomfort,made comfortable,call light within reach instructed and reminded to call for assistance,verbalized understanding.
--- NOTE | 2020-03-08 16:30 | NUR ---
Vital signs taken BP 124/74,HR 84,RR22,02 at 3 liters nasal cannula saturating 94%,Temp:98.7
--- NOTE | 2020-03-08 16:40 | NUR ---
c/o lower back pain, medicated with [place] 7.5 ,see eMAR for detail
--- NOTE | 2020-03-08 17:41 | NUR ---
HERE TO SEE AND EXAMINED PATIENT,RECEIVED ORDER TO DISCONTINUE KAUR AND CLEARED PATIENT FOR DISCHARGE IN A.M.
--- NOTE | 2020-03-08 18:34 | NUR ---
TELEMETRY #62 SHOWING SINUS RHYTHM 83
--- NOTE | 2020-03-08 19:00 | NUR ---
Opening Shift Note Assumed care of patient, awake and alert. No S/S of distress/SOB or pain. Patient in the lowest possible position with bed rails up x2 and call light within reach.Instructed on POC and to call for assist PRN, will continue to monitor for changes Q1hr and PRN.
--- NOTE | 2020-03-08 19:24 | NUR ---
RT NOTE PT WAS SEEN BY RT FOR HHN TX. PT TOLERATES WELL VIA MASK.NO ADVERSE REACTION NOTED. CONT ORDERED
--- NOTE | 2020-03-08 19:25 | NUR ---
RT NOTE PT WAS SEEN BY RT FOR HHN TX. PT TOLERATES WELL VIA MOUTHPIECE. NO ADVERSE REACTION NOTED. CONT ORDERED Addendum: 03/08/20 at 1926 by Chichi Burton RT Amended: Links added.
--- NOTE | 2020-03-08 20:00 | NUR ---
Fry catheter dc'd Order to discontinue fry catheter. Fry dc'd with clean technique following deflation of balloon. Patient tolerated well with no complaints of pain. 350ml urine in bag upon d/c. Continue care. Will monitor for patient to urinate.
--- NOTE | 2020-03-08 20:20 | NUR ---
Patient urinated post removal of fry. Will continue to monitor. Patient stated that there was no pain.
--- NOTE | 2020-03-08 20:30 | NUR ---
IV removal IV DC'd with clean sterile technique, catheter fully intact. Pressure dressing applied to site. Patient tolerated well. NOTE: Removed patients IV from the right wrist as it was no longer flowing. IV was leaking. Will continue to monitor site.
[2020-03-08] MEDS: AMITRIPTYLINE HCL 25 MG TAB PO SCH (21:59)
[2020-03-08] MEDS: ATORVASTATIN 20 MG TAB PO SCH (22:00)
[2020-03-09 05:00] VITALS: BP 102/66
[2020-03-09 06:14] LABS: Basophils # (auto) 0 10 ^3/uL (0-0.2); Basophils % (auto) 0.9 % (0.0-2.0); Eosinophils # (auto) 0.2 10 ^3/uL (0-0.8); Eosinophils % (auto) 4.4 % (0.0-7.0); Hematocrit 43.5 % (41.0-53.0); Hemoglobin 14.3 g/dL (13.5-17.5); Lymphocytes # (auto) 0.7 10 ^3/uL (0.4-5.4); Lymphocytes % (auto) 14.3 % (10.0-50.0); Mean Corpuscular Hgb Conc. 32.8 g/dL (32.0-36.0); Mean Corpuscular Volume 94.4 fL (80.0-100.0); Monocytes # (auto) 0.6 10 ^3/uL (0-1.3); Monocytes % (auto) 12.7 % (0.0-12.0); Neutrophils # (auto) 3.2 10 ^3/uL (1.6-8.6); Neutrophils % (auto) 67.7 % (37.0-80.0); Nucleated Red Blood Cells % 0.1 %; Platelet Count (auto) 83 10^3/uL (140-450); Red Blood Cells 4.61 10^6/uL (4.5-5.90); Red Cell Distribution Width 13.7 % (11.8-14.3); White Blood Cell 4.7 10^3/uL (4.4-10.8)
[2020-03-09 06:39] LABS: BUN/Creatinine Ratio 22.6; Calcium 8.2 mg/dL (8.5-10.1); Magnesium 2.1 mg/dL (1.6-2.6); Potassium 3.8 mmol/L (3.5-5.1)
[2020-03-09] MEDS: LEVALBUTEROL HCL 1.25 MG/3 ML NEB NEB SCH ×2 (07:00→11:18)
--- NOTE | 2020-03-09 07:05 | NUR ---
OPENING SHIFT NOTE Assumed care of patient from car shifter RN. Patient is alert and oriented x4, patient complaining of generalized back pain 7/, will medicated as ordered, no other signs of distress noted. He was updated on the plan of care and verbalized understanding. Bed is locked, in the lowest position, side rails up x2 and call light is in reach. Patient was encouraged to call for assistance as needed.
[2020-03-09] MEDS: HYDROcodone-ACET 7.5/325MG TAB PO PRN (08:04)
[2020-03-09 09:00] VITALS: BP 104/68
--- NOTE | 2020-03-09 10:02 | NUR ---
EITAN AT BEDSIDE Updated on patient status, Per MD patient will be discharged today, no new orders received.
[2020-03-09] MEDS: FUROSEMIDE 40 MG/4 ML VIAL IV SCH (10:11)
[2020-03-09] MEDS: ASPirin 81 mg TAB PO SCH (10:11)
[2020-03-09] MEDS: METOPROLOL TARTRATE 50 MG TAB PO SCH (10:12)
[2020-03-09] MEDS: APIXABAN 5 MG TAB PO SCH (10:12)
[2020-03-09] MEDS: HYDROcodone-ACET 5/325MG TAB PO SCH (10:12)
[2020-03-09] MEDS: AMIODARONE HCL 200 MG TAB PO SCH (10:12)
[2020-03-09] MEDS ORDERED: MET50T PO ×2 (12:06)
[2020-03-09] MEDS ORDERED: APIX5TAB PO ×2 (12:06)
[2020-03-09] MEDS ORDERED: AMIO200T4 PO ×2 (12:06)
[2020-03-09] MEDS ORDERED: ASPI81CH43 PO ×2 (12:06)
[2020-03-09 12:50] VITALS: BP 110/74
[2020-03-09 14:32] VITALS: BP 110/74
--- NOTE | 2020-03-09 15:17 | NUR ---
DISCHARGE Discharge instructions given as ordered. Encourage to follow up with PMD as instructed. All questions and concerns addressed. Patient verbalized understanding. Medication reconciliation form completed and copy given to patient. IV removed with catheter intact, pressure dressing applied. Telemetry unit returned to ICU. Patient taken to vehicle via wheelchair with all personal belongings, accompanied by staff on O2 at 3L/min. No distress noted at time of departure.
== END 2020-03-09 15:17 | disposition home or self-care (01) | DRG 315 ==
LOC: EDBD 18:08 → ER 18:08 → TELE 18:09 → DOU IN ICU 03-06 16:39 → TELE-WESTW 03-08 16:12
PROVIDERS: ADMIT Hospitalist; ATTEND Internal Medicine
PROC: B24BZZ4 Ultrasonography of Heart with Aorta, Transesophageal (ICD-10-PCS; principal; 2020-03-07)
PROC: 5A2204Z Restoration of Cardiac Rhythm, Single (ICD-10-PCS; 2020-03-08)
PROC: 4B02XTZ Measurement of Cardiac Defibrillator, External Approach (ICD-10-PCS; 2020-03-08)
DX: T82.897A Other specified complication of cardiac prosthetic devices, implants and grafts, initial encounter (principal); I48.19 Other persistent atrial fibrillation; J96.10 Chronic respiratory failure, unspecified whether with hypoxia or hypercapnia; I48.92 Unspecified atrial flutter; E66.9 Obesity, unspecified; R00.0 Tachycardia, unspecified; D69.6 Thrombocytopenia, unspecified; I48.0 Paroxysmal atrial fibrillation; E78.5 Hyperlipidemia, unspecified; I11.0 Hypertensive heart disease with heart failure; I45.10 Unspecified right bundle-branch block; I50.9 Heart failure, unspecified; J44.9 Chronic obstructive pulmonary disease, unspecified; Z79.899 Other long term (current) drug therapy; Z82.49 Family history of ischemic heart disease and other diseases of the circulatory system; Z95.810 Presence of automatic (implantable) cardiac defibrillator; Z86.73 Personal history of transient ischemic attack (TIA), and cerebral infarction without residual deficits; Z87.891 Personal history of nicotine dependence; Z90.49 Acquired absence of other specified parts of digestive tract; I25.2 Old myocardial infarction; Z68.34 Body mass index [BMI] 34.0-34.9, adult; Y71.2 Prosthetic and other implants, materials and accessory cardiovascular devices associated with adverse incidents
CPT/HCPCS: 36415; 51702; 71046; 80048; 80053; 80061; 80307; 81001; 83735; 83880; 84443; 84484; 85025; 87081; 93005; 93306; 93312; 94640; 96365; 96367; 96375; G0378; J2250; J2405; J7060

== ENCOUNTER 2020-07-26 14:38 | Emergency (ER) | payer OTHER, MEDICAID ==
[~2020-07-26] VITALS: Ht 172.7 cm; Wt 108.9 kg
[~2020-07-26 14:38] MED LIST changes: +ACLI1AER2 IN; -ALBU0.084; +AMIO200T4 PO; +AMIT75TA62 PO; -AMITRIP PO; +APIX5TAB PO; -BECL80AE9; +HYDR-392 PO; -HYDR-4833 PO; +LIDO4PAD8 EX; +LISI-648 PO; +MET50T PO; -METH500T22 PO; +METH750T3 PO; +NALO4SPR2; +PRAV20TA3 PO
[2020-07-26 14:50] VITALS: BP 122/66
[2020-07-26] MEDS ORDERED: LIDOCAINE 1% HCL (LOCAL ANESTH.) INJ 20ML MDV IJ ONE (17:00)
== END 2020-07-26 18:11 | disposition home or self-care (01) ==
LOC: EDBD 14:38 → ER 14:38
DX: S81.812A Laceration without foreign body, left lower leg, initial encounter (principal); I11.0 Hypertensive heart disease with heart failure; I50.9 Heart failure, unspecified; E78.5 Hyperlipidemia, unspecified; Z79.899 Other long term (current) drug therapy; Z79.82 Long term (current) use of aspirin; Z87.891 Personal history of nicotine dependence; W22.8XXA Striking against or struck by other objects, initial encounter; Y93.89 Activity, other specified; Y92.89 Other specified places as the place of occurrence of the external cause; Y99.8 Other external cause status
CPT/HCPCS: 12005; 99283; J2001

== ENCOUNTER 2020-07-28 10:29 | Emergency (ER) | payer OTHER, MEDICAID ==
[~2020-07-28] VITALS: Ht 172.7 cm; Wt 106.6 kg
[2020-07-28 10:35] VITALS: BP 105/77
== END 2020-07-28 11:24 | disposition home or self-care (01) ==
LOC: ER 10:29
DX: S81.812D Laceration without foreign body, left lower leg, subsequent encounter (principal); I11.0 Hypertensive heart disease with heart failure; I50.9 Heart failure, unspecified; J44.9 Chronic obstructive pulmonary disease, unspecified; E78.5 Hyperlipidemia, unspecified; I25.2 Old myocardial infarction; Z90.49 Acquired absence of other specified parts of digestive tract; Z87.891 Personal history of nicotine dependence; Z86.73 Personal history of transient ischemic attack (TIA), and cerebral infarction without residual deficits; X58.XXXD Exposure to other specified factors, subsequent encounter

== ENCOUNTER 2020-07-28 13:43 | Emergency (ER) | payer OTHER, MEDICAID ==
[~2020-07-28] VITALS: Ht 172.7 cm; Wt 106.6 kg
[2020-07-28 13:48] VITALS: BP 121/64
[2020-07-28] MEDS ORDERED: cefTRIAXone SOD 1,000 MG VL IM ONE (14:45)
== END 2020-07-28 15:21 | disposition home or self-care (01) ==
LOC: ER 13:43 → EDBD 13:43 → ER 15:20
DX: S81.812A Laceration without foreign body, left lower leg, initial encounter (principal); S51.812A Laceration without foreign body of left forearm, initial encounter; S00.33XA Contusion of nose, initial encounter; I11.0 Hypertensive heart disease with heart failure; I50.9 Heart failure, unspecified; J44.9 Chronic obstructive pulmonary disease, unspecified; E78.5 Hyperlipidemia, unspecified; I25.2 Old myocardial infarction; Z90.49 Acquired absence of other specified parts of digestive tract; Z87.891 Personal history of nicotine dependence; W18.31XA Fall on same level due to stepping on an object, initial encounter; Y93.89 Activity, other specified; Y92.89 Other specified places as the place of occurrence of the external cause; Y99.8 Other external cause status
CPT/HCPCS: 12001; 96372; 99283; J0696

== ENCOUNTER 2020-08-02 14:35 | Emergency (ER) | payer OTHER, MEDICAID ==
[~2020-08-02] VITALS: Ht 172.7 cm; Wt 108.9 kg
[2020-08-02 15:06] VITALS: BP 115/65
[2020-08-02] MEDS ORDERED: cefTRIAXone SOD 1,000 MG VL IM ONE ×2 (17:15→17:30)
[2020-08-02] MEDS ORDERED: IBUPROFEN 800 MG TAB PO ONE (17:15)
== END 2020-08-02 18:24 | disposition home or self-care (01) ==
LOC: ER 14:35
DX: S81.812D Laceration without foreign body, left lower leg, subsequent encounter (principal); E78.5 Hyperlipidemia, unspecified; J44.9 Chronic obstructive pulmonary disease, unspecified; I11.0 Hypertensive heart disease with heart failure; I50.9 Heart failure, unspecified; Z79.82 Long term (current) use of aspirin; Z79.899 Other long term (current) drug therapy; Z87.891 Personal history of nicotine dependence; X58.XXXD Exposure to other specified factors, subsequent encounter
CPT/HCPCS: 96372; 99283; J0696

== ENCOUNTER 2020-08-15 12:16 | Emergency (ER) | payer OTHER, MEDICAID ==
[~2020-08-15] VITALS: Ht 172.7 cm; Wt 108.0 kg
[2020-08-15 13:31] VITALS: BP 132/86
== END 2020-08-15 14:04 | disposition home or self-care (01) ==
LOC: ER 12:16
DX: S81.812D Laceration without foreign body, left lower leg, subsequent encounter (principal); I11.0 Hypertensive heart disease with heart failure; E78.5 Hyperlipidemia, unspecified; I50.9 Heart failure, unspecified; I25.2 Old myocardial infarction; Z90.49 Acquired absence of other specified parts of digestive tract; Z95.0 Presence of cardiac pacemaker; Z87.891 Personal history of nicotine dependence; Z79.899 Other long term (current) drug therapy; X58.XXXD Exposure to other specified factors, subsequent encounter

== ENCOUNTER 2021-05-13 15:50 | Inpatient (IN) | payer OTHER, MEDICAID ==
[~2021-05-13] VITALS: Ht 172.7 cm; Wt 104.8 kg
[~2021-05-13 15:50] MED LIST changes: -LISI-648 PO; +LISI-716 PO; +METH750T22 PO; -METH750T3 PO
[2021-05-13 18:01] LABS: Basophils # (auto) 0 10 ^3/uL (0-0.2); Basophils % (auto) 0.5 % (0.0-2.0); Eosinophils # (auto) 0.3 10 ^3/uL (0-0.8); Eosinophils % (auto) 5.7 % (0.0-7.0); Hematocrit 41.2 % (41.0-53.0); Hemoglobin 13.8 g/dL (13.5-17.5); Lymphocytes # (auto) 0.5 10 ^3/uL (0.4-5.4); Lymphocytes % (auto) 9.7 % (10.0-50.0); Mean Corpuscular Hemoglobin 31.1 pg (28.0-32.0); Mean Corpuscular Hgb Conc. 33.5 g/dL (32.0-36.0); Mean Corpuscular Volume 93.1 fL (80.0-100.0); Monocytes # (auto) 0.6 10 ^3/uL (0-1.3); Monocytes % (auto) 12.8 % (0.0-12.0); Neutrophils # (auto) 3.3 10 ^3/uL (1.6-8.6); Neutrophils % (auto) 71.3 % (37.0-80.0); Nucleated Red Blood Cells % 0.1 %; Red Blood Cells 4.43 10^6/uL (4.5-5.90); Red Cell Distribution Width 13.5 % (11.8-14.3); White Blood Cell 4.6 10^3/uL (4.4-10.8)
[2021-05-13 18:10] LABS: Albumin 3.1 g/dL (3.4-5.0); Anion Gap 7 (5-15); Blood Urea Nitrogen 21 mg/dL (7-18); Calcium 8.2 mg/dL (8.5-10.1); Carbon Dioxide 25 mmol/L (21-32); Chloride 107 mmol/L (98-107); Glucose 98 mg/dL (74-106); Potassium 3.9 mmol/L (3.5-5.1); Sodium 139 mmol/L (136-145)
[2021-05-13 18:16] LABS: Alanine Aminotransferase 19 U/L (16-61); Alkaline Phosphatase 82 U/L (45-117); Aspartate Aminotransferase 18 U/L (15-37); BUN/Creatinine Ratio 13.4; Bilirubin, Total 1.1 mg/dL (0.2-1.0); GFR African American 57 mL/min; GFR Non-African American 47 mL/min; Total Protein 7.4 g/dL (6.4-8.2)
[2021-05-13] MEDS ORDERED: cefTRIAXone 1GM/50ML D5W 50 ML IV ONE (19:30)
[2021-05-13] MEDS ORDERED: DOCUSATE SOD 100 MG CAP PO PRN (22:30)
[2021-05-13] MEDS ORDERED: ONDANSETRON HCL 4 MG/2 ML VIAL IV PRN (22:30)
[2021-05-13] MEDS ORDERED: NITROGLYCERIN 0.4 MG SL TAB SL PRN (22:30)
[2021-05-13] MEDS ORDERED: MORPHINE SULFATE INJECTION 2 MG/2 ML SYRG IV PRN (22:30)
[2021-05-13] MEDS ORDERED: ACETAMINOPHEN 325 MG TAB PO PRN (22:30)
[2021-05-14] MEDS ORDERED: IPRATROPIUM BROM 0.5 MG/2.5ML INH SOL NEB ONE (00:30)
[2021-05-14] MEDS ORDERED: ALBUTEROL SULF 2.5 MG/0.5ML(0.5%) NEB SOLN NEB ONE (00:30)
[2021-05-14 02:42] VITALS: BP 112/75
[2021-05-14 03:21] VITALS: BP 112/75
[2021-05-14] MEDS ORDERED: ALBU2SYP10 PO (04:27)
[2021-05-14] MEDS ORDERED: INFLUENZA QUAD 2020-2021 0.5 ML SYRG IM ONE (04:30)
[2021-05-14] MEDS ORDERED: PNEUMOCOCCAL VACC POLYS 25 MCG/0.5 ML VIAL IM ONE (04:45)
[2021-05-14] MEDS: SODIUM CHLOR 0.9% PF (SALINE LOCK) 10ML VIAL/SYR IV SCH ×3 (06:00→21:33)
[2021-05-14] MEDS: ALBUTEROL SULF 2.5 MG/0.5ML(0.5%) NEB SOLN NEB SCH ×6 (07:04→22:46)
[2021-05-14] MEDS: IPRATROPIUM BROM 0.5 MG/2.5ML INH SOL NEB SCH ×6 (07:04→22:46)
[2021-05-14 07:14] LABS: Basophils # (auto) 0 10 ^3/uL (0-0.2); Basophils % (auto) 0.7 % (0.0-2.0); Eosinophils # (auto) 0.3 10 ^3/uL (0-0.8); Eosinophils % (auto) 7.2 % (0.0-7.0); Hemoglobin 13.4 g/dL (13.5-17.5); Lymphocytes # (auto) 0.4 10 ^3/uL (0.4-5.4); Lymphocytes % (auto) 10.1 % (10.0-50.0); Mean Corpuscular Hemoglobin 31.2 pg (28.0-32.0); Mean Corpuscular Hgb Conc. 33.5 g/dL (32.0-36.0); Mean Corpuscular Volume 93.2 fL (80.0-100.0); Monocytes # (auto) 0.6 10 ^3/uL (0-1.3); Monocytes % (auto) 14.9 % (0.0-12.0); Neutrophils # (auto) 2.8 10 ^3/uL (1.6-8.6); Neutrophils % (auto) 67.1 % (37.0-80.0); Nucleated Red Blood Cells % 0.1 %; Red Cell Distribution Width 13.7 % (11.8-14.3); White Blood Cell 4.2 10^3/uL (4.4-10.8)
[2021-05-14 07:29] LABS: Calcium 8.8 mg/dL (8.5-10.1); Potassium 3.8 mmol/L (3.5-5.1)
[2021-05-14 07:33] LABS: BUN/Creatinine Ratio 15.7; Bilirubin, Total 0.9 mg/dL (0.2-1.0); Total Protein 7.4 g/dL (6.4-8.2)
[2021-05-14 09:00] VITALS: BP 116/73
[2021-05-14] MEDS: ASPirin 81 mg TAB PO SCH (09:44)
[2021-05-14] MEDS: ZINC SULFATE 220mg CAP or TAB PO SCH (09:44)
[2021-05-14] MEDS: ASCORBIC ACID 500 MG TAB PO SCH ×2 (09:45→21:34)
[2021-05-14] MEDS: APIXABAN 5 MG TAB PO SCH ×2 (09:45→21:34)
[2021-05-14] MEDS: MULTIPLE VITAMIN TAB PO SCH (09:45)
[2021-05-14] MEDS: FAMOTIDINE (10MG/ML) 2ML VL IV SCH (09:46)
[2021-05-14] MEDS: HYDROcodone-ACET 5/325MG TAB PO PRN ×2 (09:47→21:12)
[2021-05-14] MEDS: BUDESONIDE (INHALATION) 0.5 MG/2 ML NEB NEB SCH ×2 (10:12→22:46)
[2021-05-14] MEDS: AZITHROMYCIN 500MG/ 250ML 250 ML IV SCH ×2 (11:00→13:03)
[2021-05-14 13:00] VITALS: BP 139/78
[2021-05-14] MEDS ORDERED: cefTRIAXone 1GM/50ML D5W 50 ML IV ONE (16:00)
[2021-05-14 17:00] VITALS: BP 139/82
[2021-05-14] MEDS: AMIODARONE HCL 200 MG TAB PO SCH (21:33)
[2021-05-14 22:00] VITALS: BP 137/70
[2021-05-14] MEDS ORDERED: METOPROLOL TARTRATE 25 MG TAB PO SCH (22:00)
[2021-05-14] MEDS: METOPROLOL TARTRATE 50 MG TAB PO SCH (22:17)
[2021-05-15] MEDS: HYDROcodone-ACET 7.5/325MG TAB PO PRN ×2 (04:43→20:07)
[2021-05-15 05:00] VITALS: BP 144/85
[2021-05-15 06:04] LABS: Potassium 3.7 mmol/L (3.5-5.1)
[2021-05-15 06:13] LABS: BUN/Creatinine Ratio 15.9; Calcium 8.7 mg/dL (8.5-10.1); Magnesium 2.2 mg/dL (1.6-2.6)
[2021-05-15] MEDS: SODIUM CHLOR 0.9% PF (SALINE LOCK) 10ML VIAL/SYR IV SCH ×3 (06:13→21:16)
[2021-05-15] MEDS: METOPROLOL TARTRATE 50 MG TAB PO SCH ×3 (06:13→21:20)
[2021-05-15] MEDS: IPRATROPIUM BROM 0.5 MG/2.5ML INH SOL NEB SCH ×5 (07:31→22:03)
[2021-05-15] MEDS: BUDESONIDE (INHALATION) 0.5 MG/2 ML NEB NEB SCH ×2 (07:31→18:28)
[2021-05-15] MEDS: ALBUTEROL SULF 2.5 MG/0.5ML(0.5%) NEB SOLN NEB SCH ×5 (07:31→22:03)
[2021-05-15 09:16] VITALS: BP 124/68
[2021-05-15] MEDS: FAMOTIDINE (10MG/ML) 2ML VL IV SCH (10:29)
[2021-05-15] MEDS: cefTRIAXone 1GM/50ML D5W 50 ML IV SCH (10:29)
[2021-05-15] MEDS: AZITHROMYCIN 500MG/ 250ML 250 ML IV SCH (10:29)
[2021-05-15] MEDS: ZINC SULFATE 220mg CAP or TAB PO SCH (10:29)
[2021-05-15] MEDS: ASPirin 81 mg TAB PO SCH (10:29)
[2021-05-15] MEDS: AMIODARONE HCL 200 MG TAB PO SCH ×2 (10:29→21:17)
[2021-05-15] MEDS: MULTIPLE VITAMIN TAB PO SCH (10:30)
[2021-05-15] MEDS: ASCORBIC ACID 500 MG TAB PO SCH ×2 (10:30→21:20)
[2021-05-15] MEDS: APIXABAN 5 MG TAB PO SCH ×2 (10:30→21:18)
[2021-05-15 11:05] LABS: Free T4 (Free Thyroxine) 1.88 ng/dL (0.89-1.76)
[2021-05-15 11:07] LABS: T3 Total 1.39 ng/mL (0.60-1.81)
[2021-05-15 11:08] LABS: Free T3 4.3 pg/mL (2.3-4.2)
[2021-05-15 13:00] VITALS: BP 108/77
[2021-05-15 16:45] VITALS: BP 116/77
[2021-05-15 17:00] VITALS: BP 125/73
[2021-05-15 17:48] LABS: Urine Bacteria NONE SEEN /hpf (None Seen); Urine Blood Negative /uL (Negative); Urine Hyaline Cast FEW /lpf (0 - 2); Urine Specific Gravity 1.022 (1.001-1.035); Urine WBC 1 /hpf (0 - 3)
[2021-05-15 22:00] VITALS: BP 150/92
[2021-05-16 05:00] VITALS: BP 122/77
[2021-05-16] MEDS: SODIUM CHLOR 0.9% PF (SALINE LOCK) 10ML VIAL/SYR IV SCH ×3 (05:21→22:00)
[2021-05-16 06:31] LABS: INR 1.16 (0.9-1.15)
[2021-05-16 06:32] LABS: Magnesium 2.4 mg/dL (1.6-2.6); Potassium 4.1 mmol/L (3.5-5.1)
[2021-05-16] MEDS: ALBUTEROL SULF 2.5 MG/0.5ML(0.5%) NEB SOLN NEB SCH ×5 (06:33→22:13)
[2021-05-16] MEDS: IPRATROPIUM BROM 0.5 MG/2.5ML INH SOL NEB SCH ×5 (06:33→22:13)
[2021-05-16] MEDS: METOPROLOL TARTRATE 50 MG TAB PO SCH ×3 (06:50→21:25)
[2021-05-16] MEDS: HYDROcodone-ACET 7.5/325MG TAB PO PRN ×3 (07:07→21:27)
[2021-05-16] MEDS: cefTRIAXone 1GM/50ML D5W 50 ML IV SCH (08:19)
[2021-05-16 09:00] VITALS: BP 106/72
[2021-05-16] MEDS: APIXABAN 5 MG TAB PO SCH ×2 (09:13→21:25)
[2021-05-16] MEDS: ASPirin 81 mg TAB PO SCH (09:13)
[2021-05-16] MEDS: AMIODARONE HCL 200 MG TAB PO SCH (09:13)
[2021-05-16] MEDS: ZINC SULFATE 220mg CAP or TAB PO SCH (09:13)
[2021-05-16] MEDS: ASCORBIC ACID 500 MG TAB PO SCH ×2 (09:14→21:24)
[2021-05-16] MEDS: MULTIPLE VITAMIN TAB PO SCH (09:14)
[2021-05-16] MEDS: AZITHROMYCIN 500MG/ 250ML 250 ML IV SCH (09:14)
[2021-05-16] MEDS: FAMOTIDINE (10MG/ML) 2ML VL IV SCH (10:03)
[2021-05-16] MEDS: BUDESONIDE (INHALATION) 0.5 MG/2 ML NEB NEB SCH ×2 (10:13→22:13)
[2021-05-16 13:00] VITALS: BP 120/65
[2021-05-16 17:00] VITALS: BP 117/86
[2021-05-16 19:51] VITALS: BP 117/86
[2021-05-16] MEDS: SOTALOL HCL 80 MG TAB PO SCH (21:26)
[2021-05-16 22:00] VITALS: BP 149/80
[2021-05-17 05:00] VITALS: BP 120/77
[2021-05-17] MEDS: METOPROLOL TARTRATE 50 MG TAB PO SCH ×2 (05:41→14:47)
[2021-05-17] MEDS: SODIUM CHLOR 0.9% PF (SALINE LOCK) 10ML VIAL/SYR IV SCH ×2 (06:00→14:00)
[2021-05-17] MEDS: HYDROcodone-ACET 7.5/325MG TAB PO PRN ×2 (06:57→14:46)
[2021-05-17] MEDS: IPRATROPIUM BROM 0.5 MG/2.5ML INH SOL NEB SCH ×3 (07:08→14:04)
[2021-05-17] MEDS: ALBUTEROL SULF 2.5 MG/0.5ML(0.5%) NEB SOLN NEB SCH ×3 (07:08→14:04)
[2021-05-17 07:25] LABS: Basophils # (auto) 0 10 ^3/uL (0-0.2); Basophils % (auto) 0.9 % (0.0-2.0); Eosinophils # (auto) 0.4 10 ^3/uL (0-0.8); Eosinophils % (auto) 13.4 % (0.0-7.0); Hematocrit 37.4 % (41.0-53.0); Hemoglobin 12.6 g/dL (13.5-17.5); Lymphocytes # (auto) 0.5 10 ^3/uL (0.4-5.4); Lymphocytes % (auto) 14.3 % (10.0-50.0); Mean Corpuscular Hemoglobin 31.2 pg (28.0-32.0); Mean Corpuscular Hgb Conc. 33.7 g/dL (32.0-36.0); Mean Corpuscular Volume 92.5 fL (80.0-100.0); Monocytes # (auto) 0.4 10 ^3/uL (0-1.3); Monocytes % (auto) 12.9 % (0.0-12.0); Neutrophils # (auto) 1.9 10 ^3/uL (1.6-8.6); Neutrophils % (auto) 58.5 % (37.0-80.0); Nucleated Red Blood Cells % 0.1 %; Red Blood Cells 4.05 10^6/uL (4.5-5.90); Red Cell Distribution Width 13.2 % (11.8-14.3); White Blood Cell 3.2 10^3/uL (4.4-10.8)
[2021-05-17 07:44] LABS: Potassium 4.7 mmol/L (3.5-5.1)
[2021-05-17 07:45] LABS: BUN/Creatinine Ratio 13.3; Calcium 8.7 mg/dL (8.5-10.1); Magnesium 2.4 mg/dL (1.6-2.6)
[2021-05-17 09:00] VITALS: BP 123/81
[2021-05-17] MEDS: cefTRIAXone 1GM/50ML D5W 50 ML IV SCH (09:59)
[2021-05-17] MEDS: AZITHROMYCIN 500MG/ 250ML 250 ML IV SCH (10:00)
[2021-05-17] MEDS: ASPirin 81 mg TAB PO SCH (10:00)
[2021-05-17] MEDS: ZINC SULFATE 220mg CAP or TAB PO SCH (10:02)
[2021-05-17] MEDS: SOTALOL HCL 80 MG TAB PO SCH (10:02)
[2021-05-17] MEDS: APIXABAN 5 MG TAB PO SCH (10:03)
[2021-05-17] MEDS: MULTIPLE VITAMIN TAB PO SCH (10:03)
[2021-05-17] MEDS: ASCORBIC ACID 500 MG TAB PO SCH (10:03)
[2021-05-17] MEDS: FAMOTIDINE (10MG/ML) 2ML VL IV SCH (10:05)
[2021-05-17] MEDS ORDERED: SOTA80TA20 PO (11:58)
[2021-05-17] MEDS ORDERED: MET50T PO (11:58)
[2021-05-17] MEDS ORDERED: DOXY-286 PO (11:59)
[2021-05-17 13:00] VITALS: BP 111/76
== END 2021-05-17 15:00 | disposition home health service (06) | DRG 314 ==
LOC: ER 15:50 → EDBD 15:50 → TELE 22:23 → TELE-WESTW 05-14 01:24
PROVIDERS: ADMIT Nurse Practitioner Family; ATTEND Internal Medicine
PROC: 4B02XTZ Measurement of Cardiac Defibrillator, External Approach (ICD-10-PCS; principal; 2021-05-16)
DX: T82.118A Breakdown (mechanical) of other cardiac electronic device, initial encounter (principal); J18.9 Pneumonia, unspecified organism; N17.0 Acute kidney failure with tubular necrosis; I50.33 Acute on chronic diastolic (congestive) heart failure; J96.10 Chronic respiratory failure, unspecified whether with hypoxia or hypercapnia; I25.110 Atherosclerotic heart disease of native coronary artery with unstable angina pectoris; I48.92 Unspecified atrial flutter; E88.09 Other disorders of plasma-protein metabolism, not elsewhere classified; I11.0 Hypertensive heart disease with heart failure; I27.20 Pulmonary hypertension, unspecified; I48.91 Unspecified atrial fibrillation; E78.5 Hyperlipidemia, unspecified; B19.20 Unspecified viral hepatitis C without hepatic coma; E05.90 Thyrotoxicosis, unspecified without thyrotoxic crisis or storm; E66.9 Obesity, unspecified; I73.9 Peripheral vascular disease, unspecified; J43.9 Emphysema, unspecified; K74.60 Unspecified cirrhosis of liver; Y71.2 Prosthetic and other implants, materials and accessory cardiovascular devices associated with adverse incidents; Z20.822 Contact with and (suspected) exposure to COVID-19; Z79.01 Long term (current) use of anticoagulants; Z79.82 Long term (current) use of aspirin; Z79.899 Other long term (current) drug therapy; Z82.49 Family history of ischemic heart disease and other diseases of the circulatory system; I25.2 Old myocardial infarction; Z87.891 Personal history of nicotine dependence; Z95.810 Presence of automatic (implantable) cardiac defibrillator; Z90.49 Acquired absence of other specified parts of digestive tract
CPT/HCPCS: 36415; 71045; 76536; 80048; 80053; 81001; 83605; 83735; 83880; 84132; 84436; 84439; 84443; 84480; 84481; 84484; 85025; 85610; 87040; 87086; 87426; 93005; 93306; 94640; 96365; 97163; G0378; J0696; J3490

== ENCOUNTER 2021-08-11 10:10 | Inpatient (IN) | payer OTHER, MEDICAID ==
[~2021-08-11] VITALS: Ht 172.7 cm; Wt 96.9 kg
[~2021-08-11 10:10] MED LIST changes: +ALBU2SYP10 PO; -AMIO200T4 PO; +DOXY-286 PO; -LIDO4PAD8 EX; +SOTA80TA20 PO
[2021-08-11 11:15] LABS: Basophils # (auto) 0 10 ^3/uL (0-0.2); Basophils % (auto) 0.3 % (0.0-2.0); Eosinophils # (auto) 0.2 10 ^3/uL (0-0.8); Hematocrit 38.4 % (41.0-53.0); Hemoglobin 12.7 g/dL (13.5-17.5); Lymphocytes # (auto) 0.4 10 ^3/uL (0.4-5.4); Lymphocytes % (auto) 9.5 % (10.0-50.0); Mean Corpuscular Hemoglobin 30.1 pg (28.0-32.0); Mean Corpuscular Hgb Conc. 33.2 g/dL (32.0-36.0); Mean Corpuscular Volume 90.9 fL (80.0-100.0); Monocytes # (auto) 0.5 10 ^3/uL (0-1.3); Monocytes % (auto) 12.2 % (0.0-12.0); Neutrophils # (auto) 2.8 10 ^3/uL (1.6-8.6); Nucleated Red Blood Cells % 0.1 %; Red Blood Cells 4.23 10^6/uL (4.5-5.90); Red Cell Distribution Width 12.8 % (11.8-14.3); White Blood Cell 3.9 10^3/uL (4.4-10.8)
[2021-08-11 11:23] LABS: INR 1.14 (0.9-1.15); Partial Thromboplastin Time 31.8 sec (23.6-33.0)
[2021-08-11 11:27] LABS: Albumin 3.1 g/dL (3.4-5.0); Calcium 9.1 mg/dL (8.5-10.1); Magnesium 1.9 mg/dL (1.6-2.6); Potassium 4.3 mmol/L (3.5-5.1)
[2021-08-11 11:34] LABS: Total Protein 6.8 g/dL (6.4-8.2)
[2021-08-11] MEDS ORDERED: HYDROcodone-ACET 7.5/325MG TAB PO ONE (12:00)
[2021-08-11 16:06] LABS: Urine Bacteria NONE SEEN /hpf (None Seen); Urine Blood Negative /uL (Negative); Urine Hyaline Cast MANY /lpf (0 - 2); Urine Mucus FEW (None Seen); Urine Specific Gravity 1.014 (1.001-1.035); Urine WBC 2 /hpf (0 - 3)
[2021-08-11] MEDS ORDERED: PROMETHAZINE HCL 25 MG/ML 1ML IV ONE (18:15)
[2021-08-11] MEDS ORDERED: MORPHINE SULFATE INJECTION 2 MG/ML SYRG IV ONE (18:15)
[2021-08-11] MEDS ORDERED: METOPROLOL TARTRATE 1MG/1ML-5ML VIAL IV ONE (19:15)
[2021-08-11] MEDS ORDERED: MORPHINE SULFATE 4 MG/ML SYR/VIAL IV PRN (19:15)
[2021-08-11] MEDS ORDERED: MORPHINE SULFATE INJECTION 2 MG/ML SYRG IV PRN (19:15)
[2021-08-11] MEDS ORDERED: SODIUM CHLORIDE 0.9% 1,000 ML IV SCH (19:15)
[2021-08-11] MEDS ORDERED: ONDANSETRON HCL 4 MG/2 ML VIAL IV PRN (19:15)
[2021-08-11] MEDS ORDERED: ACETAMINOPHEN 325 MG TAB PO PRN (19:15)
[2021-08-11] MEDS ORDERED: ALBUTEROL SULF HFA 90MCG INH 200DOSE IN PRN (19:15)
[2021-08-11] MEDS ORDERED: NITROGLYCERIN 0.4 MG SL TAB SL PRN ×2 (19:15)
[2021-08-11] MEDS: APIXABAN 5 MG TAB PO SCH (22:18)
[2021-08-11] MEDS: SOTALOL HCL 80 MG TAB PO SCH (22:18)
[2021-08-11] MEDS: METOPROLOL TARTRATE 50 MG TAB PO SCH (22:45)
[2021-08-12] VITALS (7 sets, daily range): BP systolic 103–120; BP diastolic 51–75
[2021-08-12] MEDS: HYDROcodone-ACET 7.5/325MG TAB PO PRN ×4 (00:17→23:00)
[2021-08-12] MEDS ORDERED: CILO100T PO (02:38)
[2021-08-12] MEDS ORDERED: ERGO1CAP12 PO (02:38)
[2021-08-12] MEDS ORDERED: POTA10TA51 PO (02:40)
[2021-08-12 06:35] LABS: Calcium 8.5 mg/dL (8.5-10.1)
[2021-08-12] MEDS: METOPROLOL TARTRATE 50 MG TAB PO SCH ×3 (06:35→22:00)
[2021-08-12 06:44] LABS: Albumin 2.6 g/dL (3.4-5.0); BUN/Creatinine Ratio 21.6; Bilirubin, Total 0.6 mg/dL (0.2-1.0)
[2021-08-12] MEDS: ALBUTEROL SULF 2.5 MG/0.5ML(0.5%) NEB SOLN NEB SCH ×3 (06:47→18:09)
[2021-08-12] MEDS: DOCUSATE SOD 100 MG CAP PO SCH (10:16)
[2021-08-12] MEDS: SOTALOL HCL 80 MG TAB PO SCH ×2 (10:16→22:00)
[2021-08-12] MEDS: APIXABAN 5 MG TAB PO SCH ×2 (10:16→22:16)
[2021-08-12] MEDS: LISINOPRIL 10 MG TAB PO SCH (10:17)
[2021-08-12] MEDS: PRAVASTATIN SODIUM 20 MG TAB PO SCH (18:33)
[2021-08-13 05:00] VITALS: BP 104/61
[2021-08-13] MEDS: METOPROLOL TARTRATE 50 MG TAB PO SCH ×4 (06:00→22:15)
[2021-08-13] MEDS: ALBUTEROL SULF 2.5 MG/0.5ML(0.5%) NEB SOLN NEB SCH ×3 (06:49→18:18)
[2021-08-13 08:00] VITALS: BP 118/69
[2021-08-13] MEDS: HYDROcodone-ACET 7.5/325MG TAB PO PRN ×4 (08:40→18:51)
[2021-08-13] MEDS: SOTALOL HCL 80 MG TAB PO SCH ×3 (10:00→22:00)
[2021-08-13] MEDS: LISINOPRIL 10 MG TAB PO SCH (10:49)
[2021-08-13] MEDS: APIXABAN 5 MG TAB PO SCH (10:49)
[2021-08-13] MEDS: DOCUSATE SOD 100 MG CAP PO SCH (10:54)
[2021-08-13 12:00] VITALS: BP 111/72
[2021-08-13] MEDS: methIMAzole 5 MG TAB PO SCH ×2 (14:41→22:15)
[2021-08-13 16:00] VITALS: BP 117/69
[2021-08-13] MEDS: IPRATROPIUM BROM 0.5 MG/2.5ML INH SOL NEB SCH (18:18)
[2021-08-13] MEDS: PRAVASTATIN SODIUM 20 MG TAB PO SCH (18:41)
[2021-08-13 22:21] VITALS: BP 115/74
[2021-08-14 05:43] VITALS: BP 112/62
[2021-08-14] MEDS: ALBUTEROL SULF 2.5 MG/0.5ML(0.5%) NEB SOLN NEB SCH ×5 (06:04→23:57)
[2021-08-14] MEDS: IPRATROPIUM BROM 0.5 MG/2.5ML INH SOL NEB SCH ×5 (06:04→23:57)
[2021-08-14] MEDS: methIMAzole 5 MG TAB PO SCH ×3 (06:21→22:21)
[2021-08-14] MEDS: HYDROcodone-ACET 7.5/325MG TAB PO PRN ×3 (06:21→19:04)
[2021-08-14 06:44] LABS: Basophils # (auto) 0 10 ^3/uL (0-0.2); Basophils % (auto) 0.3 % (0.0-2.0); Eosinophils # (auto) 0.1 10 ^3/uL (0-0.8); Eosinophils % (auto) 4.5 % (0.0-7.0); Hematocrit 33.4 % (41.0-53.0); Hemoglobin 11.3 g/dL (13.5-17.5); Mean Corpuscular Hemoglobin 30.7 pg (28.0-32.0); Mean Corpuscular Hgb Conc. 33.9 g/dL (32.0-36.0); Mean Corpuscular Volume 90.4 fL (80.0-100.0); Neutrophils # (auto) 1.3 10 ^3/uL (1.6-8.6); Neutrophils % (auto) 63.3 % (37.0-80.0); Nucleated Red Blood Cells % 0.3 %; White Blood Cell 2.1 10^3/uL (4.4-10.8)
[2021-08-14 06:53] LABS: BUN/Creatinine Ratio 18.9; Calcium 8.4 mg/dL (8.5-10.1)
[2021-08-14 06:57] LABS: Lymphocytes # (auto) 0.4 10 ^3/uL (0.4-5.4); Lymphocytes % (auto) 15.4 % (10.0-50.0); Monocytes # (auto) 0.2 10 ^3/uL (0-1.3); Monocytes % (auto) 16.5 % (0.0-12.0)
[2021-08-14] MEDS: DOCUSATE SOD 100 MG CAP PO SCH (08:49)
[2021-08-14] MEDS: LISINOPRIL 10 MG TAB PO SCH (08:50)
[2021-08-14] MEDS: SOTALOL HCL 80 MG TAB PO SCH ×2 (08:50→22:19)
[2021-08-14] MEDS: METOPROLOL TARTRATE 50 MG TAB PO SCH ×2 (08:51→22:21)
[2021-08-14 09:00] VITALS: BP 112/60
[2021-08-14 12:45] VITALS: BP 119/71
[2021-08-14 16:47] VITALS: BP 114/65
[2021-08-14 17:05] VITALS: BP 114/65
[2021-08-14] MEDS: PRAVASTATIN SODIUM 20 MG TAB PO SCH (19:03)
[2021-08-14 20:00] VITALS: BP 122/60
[2021-08-15] MEDS: HYDROcodone-ACET 7.5/325MG TAB PO PRN ×4 (00:32→22:38)
[2021-08-15 05:00] VITALS: BP 116/59
[2021-08-15] MEDS: methIMAzole 5 MG TAB PO SCH ×3 (07:02→22:37)
[2021-08-15] MEDS: ALBUTEROL SULF 2.5 MG/0.5ML(0.5%) NEB SOLN NEB SCH ×3 (07:18→19:05)
[2021-08-15] MEDS: IPRATROPIUM BROM 0.5 MG/2.5ML INH SOL NEB SCH ×3 (07:18→19:05)
[2021-08-15 09:00] VITALS: BP 128/65
[2021-08-15] MEDS: SOTALOL HCL 80 MG TAB PO SCH ×2 (10:06→22:37)
[2021-08-15] MEDS: DOCUSATE SOD 100 MG CAP PO SCH (10:06)
[2021-08-15] MEDS: METOPROLOL TARTRATE 50 MG TAB PO SCH ×2 (10:06→22:40)
[2021-08-15] MEDS: LISINOPRIL 10 MG TAB PO SCH (10:07)
[2021-08-15 13:00] VITALS: BP 118/64
[2021-08-15 16:46] VITALS: BP 113/62
[2021-08-15] MEDS: PRAVASTATIN SODIUM 20 MG TAB PO SCH (17:55)
[2021-08-15] MEDS: MORPHINE SULFATE INJECTION 2 MG/ML SYRG IV PRN (20:25)
[2021-08-15 22:00] VITALS: BP 119/77
[2021-08-16] MEDS: ALBUTEROL SULF 2.5 MG/0.5ML(0.5%) NEB SOLN NEB SCH ×4 (00:11→19:20)
[2021-08-16] MEDS: IPRATROPIUM BROM 0.5 MG/2.5ML INH SOL NEB SCH ×4 (00:11→19:20)
[2021-08-16] MEDS: HYDROcodone-ACET 7.5/325MG TAB PO PRN ×2 (04:30→13:46)
[2021-08-16 05:00] VITALS: BP 97/52
[2021-08-16] MEDS: MORPHINE SULFATE INJECTION 2 MG/ML SYRG IV PRN ×4 (05:43→22:39)
[2021-08-16] MEDS: methIMAzole 5 MG TAB PO SCH ×3 (06:20→22:37)
[2021-08-16 06:51] LABS: Hematocrit 34.8 % (41.0-53.0); Hemoglobin 11.5 g/dL (13.5-17.5); Mean Corpuscular Hemoglobin 29.7 pg (28.0-32.0); Red Blood Cells 3.87 10^6/uL (4.5-5.90); White Blood Cell 2.6 10^3/uL (4.4-10.8)
[2021-08-16 06:53] LABS: Basophils % (manual) 0 (0.0-2.0); Blast Cells 0; Metamyelocytes % 0; Myelocytes % 0; Promyelocytes % 0; Reactive Lymphocytes 0
[2021-08-16 06:58] LABS: Calcium 8.8 mg/dL (8.5-10.1); Potassium 4.1 mmol/L (3.5-5.1)
[2021-08-16 07:02] LABS: BUN/Creatinine Ratio 21.5
[2021-08-16 08:53] LABS: Band Neutrophils % (manual) 5; Eosinophils % (manual) 6 (0-7); Lymphocytes % (manual) 19 (10.0-50.0); Monocytes % (manual) 22 (0-12)
[2021-08-16] MEDS: SOTALOL HCL 80 MG TAB PO SCH ×2 (09:00→22:36)
[2021-08-16] MEDS: DOCUSATE SOD 100 MG CAP PO SCH (09:00)
[2021-08-16] MEDS: METOPROLOL TARTRATE 50 MG TAB PO SCH ×2 (09:00→22:37)
[2021-08-16] MEDS: LISINOPRIL 10 MG TAB PO SCH (09:01)
[2021-08-16 09:16] VITALS: BP 103/58
[2021-08-16 12:39] VITALS: BP 109/69
[2021-08-16 16:21] VITALS: BP 96/60
[2021-08-16] MEDS: PRAVASTATIN SODIUM 20 MG TAB PO SCH (17:33)
[2021-08-16 22:00] VITALS: BP 115/66
[2021-08-17 05:00] VITALS: BP 97/61
[2021-08-17] MEDS: methIMAzole 5 MG TAB PO SCH ×2 (06:00→14:00)
[2021-08-17] MEDS: MORPHINE SULFATE INJECTION 2 MG/ML SYRG IV PRN (06:41)
[2021-08-17 07:26] LABS: Basophils # (auto) 0 10 ^3/uL (0-0.2); Basophils % (auto) 0.6 % (0.0-2.0); Eosinophils # (auto) 0.3 10 ^3/uL (0-0.8); Eosinophils % (auto) 9.7 % (0.0-7.0); Hematocrit 38.7 % (41.0-53.0); Hemoglobin 12.7 g/dL (13.5-17.5); Lymphocytes # (auto) 0.4 10 ^3/uL (0.4-5.4); Lymphocytes % (auto) 13.2 % (10.0-50.0); Mean Corpuscular Hemoglobin 29.3 pg (28.0-32.0); Mean Corpuscular Hgb Conc. 32.7 g/dL (32.0-36.0); Mean Corpuscular Volume 89.6 fL (80.0-100.0); Monocytes # (auto) 0.5 10 ^3/uL (0-1.3); Monocytes % (auto) 16.4 % (0.0-12.0); Neutrophils # (auto) 1.9 10 ^3/uL (1.6-8.6); Neutrophils % (auto) 60.1 % (37.0-80.0); Red Blood Cells 4.32 10^6/uL (4.5-5.90); Red Cell Distribution Width 12.9 % (11.8-14.3); White Blood Cell 3.2 10^3/uL (4.4-10.8)
[2021-08-17] MEDS ORDERED: fentaNYL CITRATE 100 MCG/2 ML VL ONE (07:40)
[2021-08-17] MEDS ORDERED: VANCOMYCIN HCL 1000 MG VL ONE (07:40)
[2021-08-17] MEDS ORDERED: MIDAZOLAM HCL 2MG/2ML 2ml VIAL (1mg/ml) ONE ×2 (07:41→09:03)
[2021-08-17] MEDS ORDERED: LIDOCAINE 2%HCL (LOCAL ANESTH.) INJ 20ML MDV ONE (07:41)
[2021-08-17] MEDS ORDERED: VANCOMYCIN 1GM/250ML 250 ML IV ONE (07:41)
[2021-08-17 07:43] LABS: INR 1.09 (0.9-1.15); Partial Thromboplastin Time 24.8 sec (23.6-33.0)
[2021-08-17 07:46] LABS: BUN/Creatinine Ratio 22.6; Calcium 9.1 mg/dL (8.5-10.1); Potassium 4.6 mmol/L (3.5-5.1)
[2021-08-17] MEDS: ALBUTEROL SULF 2.5 MG/0.5ML(0.5%) NEB SOLN NEB SCH ×3 (08:39→12:00)
[2021-08-17] MEDS: IPRATROPIUM BROM 0.5 MG/2.5ML INH SOL NEB SCH ×3 (08:39→12:00)
[2021-08-17] MEDS ORDERED: diphenhdrAMINE HCL 50 MG/1 ML VL ONE (08:59)
[2021-08-17] MEDS: DOCUSATE SOD 100 MG CAP PO SCH (10:00)
[2021-08-17 11:00] VITALS: BP 145/69
[2021-08-17] MEDS ORDERED: APIXABAN 5 MG TAB PO ONE (11:00)
[2021-08-17] MEDS: METOPROLOL TARTRATE 50 MG TAB PO SCH (11:05)
[2021-08-17] MEDS: LISINOPRIL 10 MG TAB PO SCH (11:05)
[2021-08-17] MEDS: HYDROcodone-ACET 7.5/325MG TAB PO PRN (11:10)
[2021-08-17 12:51] VITALS: BP 145/69
[2021-08-17] MEDS ORDERED: SODIUM CHLOR 0.9% PF (SALINE LOCK) 10ML VIAL/SYR IV SCH (14:00)
[2021-08-17] MEDS ORDERED: SOTALOL HCL 80 MG TAB PO SCH (14:00)
[2021-08-17] MEDS ORDERED: APIXABAN 5 MG TAB PO SCH (22:00)
== END 2021-08-17 14:09 | disposition home or self-care (01) | DRG 315 ==
LOC: ER 10:10 → EDBD 10:10 → TELE 10:11 → TELE-WESTW 22:44
PROVIDERS: ADMIT Hospitalist; ATTEND Internal Medicine
PROC: 4B02XTZ Measurement of Cardiac Defibrillator, External Approach (ICD-10-PCS; principal; 2021-08-14)
PROC: B517YZZ Fluoroscopy of Left Subclavian Vein using Other Contrast (ICD-10-PCS; 2021-08-17)
DX: T82.118A Breakdown (mechanical) of other cardiac electronic device, initial encounter (principal); J96.10 Chronic respiratory failure, unspecified whether with hypoxia or hypercapnia; I50.32 Chronic diastolic (congestive) heart failure; I42.8 Other cardiomyopathies; D68.69 Other thrombophilia; I13.0 Hypertensive heart and chronic kidney disease with heart failure and stage 1 through stage 4 chronic kidney disease, or unspecified chronic kidney disease; Z95.810 Presence of automatic (implantable) cardiac defibrillator; E05.90 Thyrotoxicosis, unspecified without thyrotoxic crisis or storm; I48.91 Unspecified atrial fibrillation; D64.9 Anemia, unspecified; K74.60 Unspecified cirrhosis of liver; E78.5 Hyperlipidemia, unspecified; D69.6 Thrombocytopenia, unspecified; D72.819 Decreased white blood cell count, unspecified; E66.9 Obesity, unspecified; E88.09 Other disorders of plasma-protein metabolism, not elsewhere classified; B19.20 Unspecified viral hepatitis C without hepatic coma; I73.9 Peripheral vascular disease, unspecified; J43.9 Emphysema, unspecified; Z20.822 Contact with and (suspected) exposure to COVID-19; Z53.9 Procedure and treatment not carried out, unspecified reason; R07.89 Other chest pain; Y71.2 Prosthetic and other implants, materials and accessory cardiovascular devices associated with adverse incidents; N18.9 Chronic kidney disease, unspecified; I25.10 Atherosclerotic heart disease of native coronary artery without angina pectoris; I25.2 Old myocardial infarction; Z79.01 Long term (current) use of anticoagulants; Z79.02 Long term (current) use of antithrombotics/antiplatelets; Z79.82 Long term (current) use of aspirin; Z82.49 Family history of ischemic heart disease and other diseases of the circulatory system; Z79.899 Other long term (current) drug therapy; Z87.891 Personal history of nicotine dependence; Z86.79 Personal history of other diseases of the circulatory system; Z90.49 Acquired absence of other specified parts of digestive tract; Z68.32 Body mass index [BMI] 32.0-32.9, adult
CPT/HCPCS: 36415; 71045; 80048; 80053; 80061; 81001; 83735; 83880; 84439; 84443; 84484; 85007; 85025; 85027; 85610; 85730; 86850; 86900; 86901; 87081; 87426; 93005; 93306; 94640; 96361; 96374; 96375; 99152; 99153; G0378; J2250

== ENCOUNTER 2021-10-29 12:04 | Inpatient (IN) | payer OTHER, MEDICAID ==
[~2021-10-29] VITALS: Ht 172.7 cm; Wt 89.6 kg
[~2021-10-29 12:04] MED LIST changes: +CILO100T PO; +ERGO1CAP12 PO; +POTA10TA51 PO
[2021-10-29] MEDS ORDERED: SODIUM CHLORIDE 0.9% 500 ML IV ONE (12:15)
[2021-10-29 13:19] LABS: Basophils # (auto) 0.1 10 ^3/uL (0-0.2); Basophils % (auto) 1.1 % (0.0-2.0); Eosinophils # (auto) 0.2 10 ^3/uL (0-0.8); Eosinophils % (auto) 1.8 % (0.0-7.0); Hematocrit 33.7 % (41.0-53.0); Hemoglobin 11.2 g/dL (13.5-17.5); Lymphocytes # (auto) 0.4 10 ^3/uL (0.4-5.4); Lymphocytes % (auto) 3.6 % (10.0-50.0); Mean Corpuscular Hemoglobin 29.6 pg (28.0-32.0); Mean Corpuscular Hgb Conc. 33.3 g/dL (32.0-36.0); Mean Corpuscular Volume 88.9 fL (80.0-100.0); Monocytes # (auto) 0.9 10 ^3/uL (0-1.3); Monocytes % (auto) 8.9 % (0.0-12.0); Neutrophils # (auto) 8.4 10 ^3/uL (1.6-8.6); Neutrophils % (auto) 84.6 % (37.0-80.0); Red Blood Cells 3.79 10^6/uL (4.5-5.90); Red Cell Distribution Width 15.3 % (11.8-14.3)
[2021-10-29 13:33] LABS: INR 1.28 (0.9-1.15); Partial Thromboplastin Time 40.2 sec (23.6-33.0)
[2021-10-29 13:46] LABS: Albumin 2.4 g/dL (3.4-5.0); Calcium 9.3 mg/dL (8.5-10.1); Magnesium 3.3 mg/dL (1.6-2.6)
[2021-10-29 13:51] LABS: BUN/Creatinine Ratio 17.2; Bilirubin, Total 1.4 mg/dL (0.2-1.0)
[2021-10-29] MEDS ORDERED: NOREPINEPHRINE 8 MG/250ML KIT 250 ML IV ONE (13:52)
[2021-10-29 14:02] LABS: Potassium 6.5 mmol/L (3.5-5.1)
[2021-10-29] MEDS: NOREPINEPHRINE 8 MG/250ML KIT 250 ML IV SCH (14:05)
[2021-10-29] MEDS ORDERED: CALCIUM GLUC 1,000mg/50ml-NS 50 ML IV ONE (14:15)
[2021-10-29] MEDS ORDERED: SODIUM BICARBONATE 8.4 % INJ 50ML VIAL IV ONE ×4 (14:15→15:20)
[2021-10-29] MEDS ORDERED: ALBUTEROL SULF 2.5 MG/0.5ML(0.5%) NEB SOLN NEB ONE (15:00)
[2021-10-29] MEDS ORDERED: SODIUM BICARBONATE 8.4% INJ 50ML SYRINGE IV ONE (15:00)
[2021-10-29] MEDS ORDERED: SODIUM ZIRCONIUM CYCL 10 GM PAK PO ONE (15:00)
[2021-10-29] MEDS ORDERED: FUROSEMIDE 20 MG/2 ML VIAL IV ONE (15:00)
[2021-10-29] MEDS ORDERED: CALCIUM CHL 100MG/ML 1,000 MG in D5W 5% 100 ML IV ONE (15:00)
[2021-10-29] MEDS ORDERED: MORPHINE SULFATE INJECTION 2 MG/ML SYRG IV PRN ×2 (15:00→16:30)
[2021-10-29] MEDS ORDERED: InsuLIN REG 1unit/0.01ml Soln (100units/ml) IV ONE (15:00)
[2021-10-29] MEDS ORDERED: NITROGLYCERIN 0.4 MG SL TAB SL PRN ×2 (15:00→16:30)
[2021-10-29] MEDS ORDERED: LACTATED RINGER'S 2,000 ML IV ONE (15:45)
[2021-10-29] MEDS ORDERED: BUDESONIDE (INHALATION) 0.5 MG/2 ML NEB NEB ONE (16:00)
[2021-10-29] MEDS ORDERED: ALBUTEROL SULF 2.5 MG/0.5ML(0.5%) NEB SOLN NEB PRN (16:00)
[2021-10-29] MEDS ORDERED: ALBUMIN 25% 100 ML IV ONE (16:00)
[2021-10-29] MEDS ORDERED: IPRATROPIUM BROM 0.5 MG/2.5ML INH SOL NEB ONE (16:00)
[2021-10-29] MEDS ORDERED: AZITHROMYCIN 500MG/ 250ML 250 ML IV ONE (16:00)
[2021-10-29] MEDS ORDERED: SODIUM CHLORIDE 0.9% 1,000 ML IV SCH (16:00)
[2021-10-29] MEDS ORDERED: cefTRIAXone 1GM/50ML D5W 50 ML IV ONE (16:00)
[2021-10-29] MEDS ORDERED: GLUCAGON HYDROCHLORIDE (RDNA) 1 MG VIAL IV ONE (16:15)
[2021-10-29] MEDS ORDERED: ONDANSETRON HCL 4 MG/2 ML VIAL IV PRN (16:30)
[2021-10-29] MEDS ORDERED: ALUM & MAG HYDROX-SIMETH LIQ(MAALOX) 30 ML PO PRN (16:30)
[2021-10-29] MEDS ORDERED: ACETAMINOPHEN 325 MG TAB PO PRN (16:30)
[2021-10-29] MEDS ORDERED: DOCUSATE SOD 100 MG CAP PO PRN (16:30)
[2021-10-29] MEDS ORDERED: LORazepam 0.5 MG TAB PO PRN (16:30)
[2021-10-29 16:33] LABS: Magnesium 2.6 mg/dL (1.6-2.6); Phosphorus 5.2 mg/dL (2.5-4.90)
[2021-10-29] MEDS: FUROSEMIDE 20 MG/2 ML VIAL IV SCH (18:00)
[2021-10-29] MEDS: IPRATROPIUM BROM 0.5 MG/2.5ML INH SOL NEB SCH ×2 (18:00→22:00)
[2021-10-29] MEDS: D5W/SOD CHLO 0.9% 1,000 ML IV SCH (19:02)
[2021-10-29 19:20] LABS: INR 1.29 (0.9-1.15); Partial Thromboplastin Time 37.6 sec (23.6-33.0)
[2021-10-29 19:53] LABS: Folate (Folic Acid) 3.93 ng/mL (5.38-24)
[2021-10-29 20:06] LABS: % Iron Saturation 20.9 % (20-55)
[2021-10-29] MEDS: MORPHINE SULFATE INJECTION 2 MG/ML SYRG IV PRN (20:56)
[2021-10-29] MEDS: methylPREDNISolone SOD SUCC 40 MG/ML VL IV SCH (21:49)
[2021-10-29] MEDS: ISOSORBIDE MONONITRATE 20 MG TAB PO SCH (21:50)
[2021-10-29] MEDS: SOTALOL HCL 80 MG TAB PO SCH (21:51)
[2021-10-29] MEDS ORDERED: BUDESONIDE (INHALATION) 0.5 MG/2 ML NEB NEB SCH (22:00)
[2021-10-29] MEDS: ALBUMIN 25% 100 ML IV SCH (23:38)
[2021-10-30] MEDS: methylPREDNISolone SOD SUCC 40 MG/ML VL IV SCH (06:00)
[2021-10-30] MEDS ORDERED: ALBUTEROL SULF HFA 90MCG INH 200DOSE IN SCH (06:00)
[2021-10-30] MEDS: FUROSEMIDE 20 MG/2 ML VIAL IV SCH (06:00)
[2021-10-30 06:45] VITALS: BP 143/82
[2021-10-30 07:01] VITALS: BP 131/84
[2021-10-30 07:22] LABS: Basophils # (auto) 0 10 ^3/uL (0-0.2); Basophils % (auto) 0.1 % (0.0-2.0); Eosinophils # (auto) 0 10 ^3/uL (0-0.8); Lymphocytes # (auto) 0.2 10 ^3/uL (0.4-5.4); Lymphocytes % (auto) 2.7 % (10.0-50.0); Mean Corpuscular Hemoglobin 29.4 pg (28.0-32.0); Mean Corpuscular Hgb Conc. 33.4 g/dL (32.0-36.0); Mean Corpuscular Volume 87.9 fL (80.0-100.0); Monocytes # (auto) 0.1 10 ^3/uL (0-1.3); Monocytes % (auto) 1.3 % (0.0-12.0); Neutrophils # (auto) 6.7 10 ^3/uL (1.6-8.6); Neutrophils % (auto) 95.9 % (37.0-80.0); Red Blood Cells 3.41 10^6/uL (4.5-5.90); Red Cell Distribution Width 15.1 % (11.8-14.3)
[2021-10-30 07:28] LABS: INR 1.27 (0.9-1.15); Partial Thromboplastin Time 35.7 sec (23.6-33.0)
[2021-10-30 07:40] LABS: Potassium 4.8 mmol/L (3.5-5.1)
[2021-10-30] MEDS: D5W/SOD CHLO 0.9% 1,000 ML IV SCH (07:44)
[2021-10-30 07:54] LABS: Albumin 3.1 g/dL (3.4-5.0); BUN/Creatinine Ratio 24.2; Bilirubin, Total 1.4 mg/dL (0.2-1.0); Calcium 9.1 mg/dL (8.5-10.1); Magnesium 2.9 mg/dL (1.6-2.6); Phosphorus 4.4 mg/dL (2.5-4.90); Uric Acid 12.4 mg/dL (3.5-7.2)
[2021-10-30 07:56] LABS: Alcohol, Urine < 3.0 mg/dL (0-10); Amphetamine Screen, Urine NEGATIVE (NEGATIVE); Barbiturate Scree,Urine NEGATIVE (NEGATIVE); Benzodiazephine Screen, Urine NEGATIVE (NEGATIVE); Cannabinoid Screen, Urine NEGATIVE (NEGATIVE); Cocaine Screen, Urine NEGATIVE (NEGATIVE); Opiate Scree,Urine POSITIVE (NEGATIVE); Phencyclidine Screen, Urine NEGATIVE (NEGATIVE)
[2021-10-30] MEDS: ALBUMIN 25% 100 ML IV SCH (09:25)
[2021-10-30] MEDS: cefTRIAXone 1GM/50ML D5W 50 ML IV SCH (09:26)
[2021-10-30] MEDS ORDERED: PATIENTS OWN MEDICATION (PULMICORT 360 MCG) IN SCH (10:00)
[2021-10-30] MEDS: BUDESONIDE (INHALATION) 180 MCG IH IN SCH ×2 (10:25→18:37)
[2021-10-30] MEDS ORDERED: PANTOPRAZOLE 40 MG TAB PO ONE (12:00)
[2021-10-30] MEDS: SOTALOL HCL 80 MG TAB PO SCH ×2 (12:58→23:30)
[2021-10-30] MEDS: ISOSORBIDE MONONITRATE 20 MG TAB PO SCH ×2 (12:58→23:30)
[2021-10-30] MEDS: NOREPINEPHRINE 8 MG/250ML KIT 250 ML IV SCH (14:41)
[2021-10-30] MEDS: SODIUM CHLORIDE 0.9% 1,000 ML IV SCH (14:51)
[2021-10-30] MEDS: AZITHROMYCIN 500MG/ 250ML 250 ML IV SCH (14:51)
[2021-10-30] MEDS: ALBUTEROL SULF HFA 90MCG INH 200DOSE IN PRN (18:48)
[2021-10-30 21:50] VITALS: BP 98/68
[2021-10-30 22:10] VITALS: BP 128/80
[2021-10-30 22:55] VITALS: BP 106/70
[2021-10-30] MEDS: methIMAzole 5 MG TAB PO SCH (23:30)
[2021-10-31] MEDS: SODIUM CHLORIDE 0.9% 1,000 ML IV SCH (04:21)
[2021-10-31 06:45] LABS: Basophils # (auto) 0 10 ^3/uL (0-0.2); Eosinophils # (auto) 0 10 ^3/uL (0-0.8); Mean Corpuscular Volume 88.8 fL (80.0-100.0); Monocytes # (auto) 0.4 10 ^3/uL (0-1.3); Nucleated Red Blood Cells % 0.1 %
[2021-10-31 06:46] LABS: Basophils % (auto) 0.4 % (0.0-2.0); Hematocrit 24.1 % (41.0-53.0); INR 1.25 (0.9-1.15); Lymphocytes # (auto) 0.2 10 ^3/uL (0.4-5.4); Lymphocytes % (auto) 4.9 % (10.0-50.0); Mean Corpuscular Hemoglobin 29.5 pg (28.0-32.0); Mean Corpuscular Hgb Conc. 33.3 g/dL (32.0-36.0); Monocytes % (auto) 8.4 % (0.0-12.0); Neutrophils # (auto) 3.8 10 ^3/uL (1.6-8.6); Neutrophils % (auto) 86.3 % (37.0-80.0); Red Blood Cells 2.72 10^6/uL (4.5-5.90); Red Cell Distribution Width 15.1 % (11.8-14.3); White Blood Cell 4.4 10^3/uL (4.4-10.8)
[2021-10-31 06:49] LABS: Calcium 9.1 mg/dL (8.5-10.1); Potassium 4.2 mmol/L (3.5-5.1)
[2021-10-31 06:56] LABS: BUN/Creatinine Ratio 36.7
[2021-10-31 07:00] LABS: CRP High Sensitivity 9.91 mg/dL (< 0.3)
[2021-10-31 07:05] LABS: Thyroid Stimulating Hormone 0.92 uIU/mL (0.358-3.74)
[2021-10-31] MEDS: cefTRIAXone 1GM/50ML D5W 50 ML IV SCH (09:42)
[2021-10-31] MEDS ORDERED: DexAMETHasone SOD PHOS 10MG/1ML VIAL INJ IV SCH ×3 (10:00)
[2021-10-31] MEDS: BUDESONIDE (INHALATION) 180 MCG IH IN SCH ×2 (11:52→22:00)
[2021-10-31] MEDS: ZINC SULFATE 220mg CAP or TAB PO SCH (13:43)
[2021-10-31] MEDS: AZITHROMYCIN 500MG/ 250ML 250 ML IV SCH (13:43)
[2021-10-31] MEDS: ISOSORBIDE MONONITRATE 20 MG TAB PO SCH ×2 (13:44→22:00)
[2021-10-31] MEDS: SOTALOL HCL 80 MG TAB PO SCH ×2 (13:44→22:00)
[2021-10-31] MEDS: PANTOPRAZOLE 40 MG TAB PO SCH (13:44)
[2021-10-31] MEDS: ASCORBIC ACID 1,000 MG TAB PO SCH (13:45)
[2021-10-31] MEDS: CHOLECALCIFEROL (VITD3) 2,000 UNIT CAP/TAB PO SCH (13:45)
[2021-10-31] MEDS: methIMAzole 5 MG TAB PO SCH ×2 (13:45→22:06)
[2021-10-31] MEDS: NOREPINEPHRINE 8 MG/250ML KIT 250 ML IV SCH (13:46)
[2021-10-31] MEDS: HYDROcodone-ACET 5/325MG TAB PO PRN (15:07)
[2021-10-31] MEDS ORDERED: VANCOMYCIN PER PHARMACY 0 MG IV SCH (16:00)
[2021-10-31] MEDS ORDERED: VANCOMYCIN 1GM/250ML 250 ML IV ONE (17:00)
[2021-10-31] MEDS: DOXYCYCLINE 100 MG TAB/CAP PO SCH (22:06)
[2021-10-31] MEDS: MORPHINE SULFATE INJECTION 2 MG/ML SYRG IV PRN (23:43)
[2021-11-01] MEDS: SODIUM CHLORIDE 0.9% 1,000 ML IV SCH (06:16)
[2021-11-01] MEDS: BUDESONIDE (INHALATION) 180 MCG IH IN SCH ×2 (07:20→20:02)
[2021-11-01] MEDS: ALBUTEROL SULF HFA 90MCG INH 200DOSE IN PRN ×2 (07:20→20:38)
[2021-11-01 07:23] LABS: Basophils # (auto) 0 10 ^3/uL (0-0.2); Eosinophils # (auto) 0 10 ^3/uL (0-0.8); Hematocrit 24.3 % (41.0-53.0); Hemoglobin 8.1 g/dL (13.5-17.5); Lymphocytes # (auto) 0.3 10 ^3/uL (0.4-5.4); Monocytes # (auto) 0.4 10 ^3/uL (0-1.3); Neutrophils # (auto) 3.7 10 ^3/uL (1.6-8.6)
[2021-11-01 07:24] LABS: Albumin 2.6 g/dL (3.4-5.0); Potassium 4.2 mmol/L (3.5-5.1)
[2021-11-01 07:28] LABS: BUN/Creatinine Ratio 34.4; Basophils % (auto) 0.2 % (0.0-2.0); Bilirubin, Total 0.5 mg/dL (0.2-1.0); Calcium 8.8 mg/dL (8.5-10.1); Mean Corpuscular Hemoglobin 29.8 pg (28.0-32.0); Mean Corpuscular Hgb Conc. 33.2 g/dL (32.0-36.0); Mean Corpuscular Volume 89.8 fL (80.0-100.0); Monocytes % (auto) 9.9 % (0.0-12.0); Neutrophils % (auto) 82.9 % (37.0-80.0); Nucleated Red Blood Cells % 0.1 %; Red Blood Cells 2.71 10^6/uL (4.5-5.90); Red Cell Distribution Width 15.4 % (11.8-14.3); Total Protein 5.7 g/dL (6.4-8.2); White Blood Cell 4.5 10^3/uL (4.4-10.8)
[2021-11-01 07:49] LABS: CRP High Sensitivity 5.9 mg/dL (< 0.3); Magnesium 2.1 mg/dL (1.6-2.6)
[2021-11-01 08:54] LABS: INR 1.17 (0.9-1.15)
[2021-11-01] MEDS: cefTRIAXone 1GM/50ML D5W 50 ML IV SCH (09:07)
[2021-11-01] MEDS: MORPHINE SULFATE INJECTION 2 MG/ML SYRG IV PRN (09:36)
[2021-11-01] MEDS: FOLIC ACID 1 MG TAB PO SCH (09:38)
[2021-11-01] MEDS: DexAMETHasone SOD PHOS 4 MG/1ML SDV INJ IV SCH (09:38)
[2021-11-01] MEDS: ISOSORBIDE MONONITRATE 20 MG TAB PO SCH ×2 (09:39→22:00)
[2021-11-01] MEDS: PANTOPRAZOLE 40 MG TAB PO SCH (09:39)
[2021-11-01] MEDS: ZINC SULFATE 220mg CAP or TAB PO SCH (09:39)
[2021-11-01] MEDS: methIMAzole 5 MG TAB PO SCH ×2 (09:39→22:23)
[2021-11-01] MEDS: SOTALOL HCL 80 MG TAB PO SCH ×2 (09:39→22:23)
[2021-11-01] MEDS: CHOLECALCIFEROL (VITD3) 2,000 UNIT CAP/TAB PO SCH (09:40)
[2021-11-01] MEDS: DOXYCYCLINE 100 MG TAB/CAP PO SCH ×2 (09:40→22:24)
[2021-11-01] MEDS: ASCORBIC ACID 1,000 MG TAB PO SCH (09:40)
[2021-11-01 11:56] VITALS: BP 117/68
[2021-11-01] MEDS ORDERED: LIDOCAINE 2%HCL (LOCAL ANESTH.) INJ 20ML MDV ONE (12:10)
[2021-11-01 13:00] VITALS: BP 102/68
[2021-11-01] MEDS: HYDROcodone-ACET 5/325MG TAB PO PRN ×2 (13:50→20:24)
[2021-11-01 13:55] LABS: Protein, Urine 12.4 mg/dL (0.0-11.9)
[2021-11-01 14:11] LABS: Urine Bacteria NONE SEEN /hpf (None Seen); Urine Blood Negative /uL (Negative); Urine Specific Gravity 1.015 (1.001-1.035); Urine WBC 3 /hpf (0 - 3)
[2021-11-01] MEDS: VANCOMYCIN 1GM/250ML 250 ML IV SCH (15:05)
[2021-11-01] MEDS ORDERED: METH10TA6 PO (15:06)
[2021-11-01] MEDS ORDERED: AZIT250T9 PO (15:08)
[2021-11-01] MEDS ORDERED: LIDO5PAD8 EX (15:08)
[2021-11-01 16:55] VITALS: BP 125/81
[2021-11-01 21:49] VITALS: BP 104/65
[2021-11-02 05:00] VITALS: BP 115/69
[2021-11-02 07:30] LABS: Potassium 4.5 mmol/L (3.5-5.1)
[2021-11-02 07:35] LABS: BUN/Creatinine Ratio 31.9; Calcium 8.7 mg/dL (8.5-10.1)
[2021-11-02] MEDS: VANCOMYCIN 1GM/250ML 250 ML IV SCH (08:22)
[2021-11-02] MEDS: cefTRIAXone 1GM/50ML D5W 50 ML IV SCH (08:23)
[2021-11-02] MEDS ORDERED: fentaNYL CITRATE 100 MCG/2 ML VL IV ONE (08:30)
[2021-11-02] MEDS ORDERED: MIDAZOLAM HCL 2MG/2ML 2ml VIAL (1mg/ml) IV ONE (08:30)
[2021-11-02 08:54] VITALS: BP 113/62
[2021-11-02] MEDS ORDERED: LIDOCAINE 2%HCL (LOCAL ANESTH.) INJ 20ML MDV ONE (10:05)
[2021-11-02] MEDS: SOTALOL HCL 80 MG TAB PO SCH ×2 (11:10→22:48)
[2021-11-02] MEDS: ISOSORBIDE MONONITRATE 20 MG TAB PO SCH ×2 (11:13→22:00)
[2021-11-02] MEDS: HYDROcodone-ACET 5/325MG TAB PO PRN ×2 (11:31→17:56)
[2021-11-02] MEDS: CHOLECALCIFEROL (VITD3) 2,000 UNIT CAP/TAB PO SCH (11:31)
[2021-11-02] MEDS: ZINC SULFATE 220mg CAP or TAB PO SCH (11:32)
[2021-11-02] MEDS: ASCORBIC ACID 1,000 MG TAB PO SCH (11:32)
[2021-11-02] MEDS: PANTOPRAZOLE 40 MG TAB PO SCH (11:32)
[2021-11-02] MEDS: methIMAzole 5 MG TAB PO SCH ×2 (11:32→22:50)
[2021-11-02] MEDS: DexAMETHasone SOD PHOS 4 MG/1ML SDV INJ IV SCH (11:33)
[2021-11-02] MEDS: FOLIC ACID 1 MG TAB PO SCH (11:33)
[2021-11-02] MEDS: DOXYCYCLINE 100 MG TAB/CAP PO SCH ×2 (11:51→22:50)
[2021-11-02] MEDS ORDERED: REMDESIVIR PER PHARMACY 0 ML IV SCH (12:15)
[2021-11-02] MEDS ORDERED: MORPHINE SULFATE INJECTION 2 MG/ML SYRG IV ONE (12:15)
[2021-11-02 12:31] VITALS: BP 113/67
[2021-11-02] MEDS ORDERED: REMDESIVIR 200 MG in NS 210ml LOADING DOSE ADULT IV ONE (15:00)
[2021-11-02] MEDS: BUDESONIDE (INHALATION) 180 MCG IH IN SCH ×2 (15:50→21:45)
[2021-11-02] MEDS: ALBUTEROL SULF HFA 90MCG INH 200DOSE IN PRN ×2 (15:50→22:35)
[2021-11-02 17:38] VITALS: BP 133/59
[2021-11-02] MEDS: MORPHINE SULFATE INJECTION 2 MG/ML SYRG IV PRN (20:58)
[2021-11-02 22:00] VITALS: BP 103/68
[2021-11-03] MEDS: VANCOMYCIN 1GM/250ML 250 ML IV SCH (03:14)
[2021-11-03] MEDS: HYDROcodone-ACET 5/325MG TAB PO PRN ×4 (04:51→21:46)
[2021-11-03 05:00] VITALS: BP 105/65
[2021-11-03 07:16] LABS: Calcium 8.5 mg/dL (8.5-10.1); Potassium 4.3 mmol/L (3.5-5.1)
[2021-11-03 07:22] LABS: Albumin 2.5 g/dL (3.4-5.0); BUN/Creatinine Ratio 25.5; Bilirubin, Total 0.7 mg/dL (0.2-1.0); Total Protein 5.3 g/dL (6.4-8.2)
[2021-11-03] MEDS: cefTRIAXone 1GM/50ML D5W 50 ML IV SCH (08:14)
[2021-11-03] MEDS: DexAMETHasone SOD PHOS 10MG/1ML VIAL INJ IV SCH (08:14)
[2021-11-03] MEDS: SOTALOL HCL 80 MG TAB PO SCH ×2 (08:15→21:48)
[2021-11-03] MEDS: ZINC SULFATE 220mg CAP or TAB PO SCH (08:15)
[2021-11-03] MEDS: PANTOPRAZOLE 40 MG TAB PO SCH (08:15)
[2021-11-03] MEDS: FOLIC ACID 1 MG TAB PO SCH (08:15)
[2021-11-03] MEDS: CHOLECALCIFEROL (VITD3) 2,000 UNIT CAP/TAB PO SCH (08:15)
[2021-11-03] MEDS: ASCORBIC ACID 1,000 MG TAB PO SCH (08:15)
[2021-11-03 09:00] VITALS: BP 113/70
[2021-11-03] MEDS: MORPHINE SULFATE INJECTION 2 MG/ML SYRG IV PRN (09:17)
[2021-11-03] MEDS: ISOSORBIDE MONONITRATE 20 MG TAB PO SCH ×2 (09:21→21:47)
[2021-11-03] MEDS: methIMAzole 5 MG TAB PO SCH ×2 (09:22→21:46)
[2021-11-03] MEDS: DOXYCYCLINE 100 MG TAB/CAP PO SCH ×2 (10:00→22:00)
[2021-11-03] MEDS: ALBUTEROL SULF HFA 90MCG INH 200DOSE IN PRN ×2 (10:33→22:08)
[2021-11-03] MEDS: BUDESONIDE (INHALATION) 180 MCG IH IN SCH ×2 (10:33→22:08)
[2021-11-03 13:00] VITALS: BP 96/63
[2021-11-03] MEDS: REMDESIVIR 100mg 100 MG in SODIUM CHL 0.9% 230 ML IV SCH (15:00)
[2021-11-03 15:17] LABS: Hemoglobin 8.2 g/dL (13.5-17.5); Mean Corpuscular Volume 90.1 fL (80.0-100.0); Red Cell Distribution Width 15.1 % (11.8-14.3); White Blood Cell 5.1 10^3/uL (4.4-10.8)
[2021-11-03 15:18] LABS: Mean Corpuscular Hemoglobin 30.7 pg (28.0-32.0); Red Blood Cells 2.67 10^6/uL (4.5-5.90)
[2021-11-03 15:26] LABS: Basophils % (manual) 0 (0.0-2.0); Blast Cells 0; Metamyelocytes % 0; Myelocytes % 0; Promyelocytes % 0; Reactive Lymphocytes 0
[2021-11-03] MEDS: LORazepam 0.5 MG TAB PO PRN ×2 (16:31→22:26)
[2021-11-03 16:50] LABS: Band Neutrophils % (manual) 3; Eosinophils % (manual) 2 (0-7); Lymphocytes % (manual) 8 (10.0-50.0); Monocytes % (manual) 5 (0-12)
[2021-11-03 17:00] VITALS: BP 97/62
[2021-11-03 22:00] VITALS: BP 122/76
[2021-11-04 05:00] VITALS: BP 110/65
[2021-11-04] MEDS: LORazepam 0.5 MG TAB PO PRN ×3 (07:40→21:14)
[2021-11-04] MEDS: HYDROcodone-ACET 5/325MG TAB PO PRN ×3 (07:40→21:15)
[2021-11-04] MEDS: cefTRIAXone 1GM/50ML D5W 50 ML IV SCH (07:41)
[2021-11-04] MEDS: ALBUTEROL SULF HFA 90MCG INH 200DOSE IN PRN ×2 (07:46→21:35)
[2021-11-04] MEDS: BUDESONIDE (INHALATION) 180 MCG IH IN SCH ×2 (07:46→21:35)
[2021-11-04 08:09] LABS: Potassium 4.1 mmol/L (3.5-5.1)
[2021-11-04 08:26] LABS: Albumin 2.5 g/dL (3.4-5.0); BUN/Creatinine Ratio 26.3; Bilirubin, Total 0.4 mg/dL (0.2-1.0); Calcium 8.4 mg/dL (8.5-10.1); Total Protein 5.3 g/dL (6.4-8.2)
[2021-11-04] MEDS: SOTALOL HCL 80 MG TAB PO SCH ×2 (08:54→21:17)
[2021-11-04] MEDS: FOLIC ACID 1 MG TAB PO SCH (08:54)
[2021-11-04] MEDS: DexAMETHasone SOD PHOS 10MG/1ML VIAL INJ IV SCH (08:54)
[2021-11-04] MEDS: PANTOPRAZOLE 40 MG TAB PO SCH (08:54)
[2021-11-04] MEDS: ISOSORBIDE MONONITRATE 20 MG TAB PO SCH ×2 (08:54→21:16)
[2021-11-04] MEDS: ZINC SULFATE 220mg CAP or TAB PO SCH (08:54)
[2021-11-04] MEDS: CHOLECALCIFEROL (VITD3) 2,000 UNIT CAP/TAB PO SCH (08:55)
[2021-11-04] MEDS: methIMAzole 5 MG TAB PO SCH ×2 (08:55→21:15)
[2021-11-04] MEDS: ASCORBIC ACID 1,000 MG TAB PO SCH (08:55)
[2021-11-04 09:00] VITALS: BP 104/69
[2021-11-04] MEDS: DOXYCYCLINE 100 MG TAB/CAP PO SCH ×2 (09:31→21:13)
[2021-11-04] MEDS: MORPHINE SULFATE INJECTION 2 MG/ML SYRG IV PRN ×2 (11:30→18:24)
[2021-11-04 13:00] VITALS: BP 99/58
[2021-11-04] MEDS ORDERED: LIDOCAINE 5% TOPICAL PATCH TOP ONE (14:00)
[2021-11-04] MEDS: REMDESIVIR 100mg 100 MG in SODIUM CHL 0.9% 230 ML IV SCH (14:42)
[2021-11-04 17:00] VITALS: BP 116/73
[2021-11-04 17:04] LABS: Lactic Acid w/Reflex 2.2 mmol/L (0.4-2.0)
[2021-11-04] MEDS: BACLOFEN 10 MG TAB PO PRN (21:16)
[2021-11-04 21:55] VITALS: BP 137/73
[2021-11-05 04:55] VITALS: BP 132/74
[2021-11-05] MEDS: BUDESONIDE (INHALATION) 180 MCG IH IN SCH ×2 (05:46→20:41)
[2021-11-05] MEDS: ALBUTEROL SULF HFA 90MCG INH 200DOSE IN PRN ×2 (05:46→20:41)
[2021-11-05 06:56] LABS: Hemoglobin 8.1 g/dL (13.5-17.5)
[2021-11-05 06:58] LABS: Hematocrit 23.7 % (41.0-53.0)
[2021-11-05 07:14] LABS: Albumin 2.3 g/dL (3.4-5.0); Calcium 8.3 mg/dL (8.5-10.1); Potassium 4.2 mmol/L (3.5-5.1)
[2021-11-05 07:17] LABS: BUN/Creatinine Ratio 28.4
[2021-11-05 07:20] LABS: Bilirubin, Total 0.4 mg/dL (0.2-1.0)
[2021-11-05 08:30] VITALS: BP 104/51
[2021-11-05] MEDS: cefTRIAXone 1GM/50ML D5W 50 ML IV SCH (09:00)
[2021-11-05] MEDS: methIMAzole 5 MG TAB PO SCH ×2 (10:00→21:49)
[2021-11-05] MEDS: CHOLECALCIFEROL (VITD3) 2,000 UNIT CAP/TAB PO SCH (10:00)
[2021-11-05] MEDS: FOLIC ACID 1 MG TAB PO SCH (10:00)
[2021-11-05] MEDS: ASCORBIC ACID 1,000 MG TAB PO SCH (10:00)
[2021-11-05] MEDS: LIDOCAINE 5% TOPICAL PATCH TOP SCH (10:00)
[2021-11-05] MEDS: PANTOPRAZOLE 40 MG TAB PO SCH (10:00)
[2021-11-05] MEDS: SOTALOL HCL 80 MG TAB PO SCH ×2 (10:00→21:46)
[2021-11-05] MEDS: DOXYCYCLINE 100 MG TAB/CAP PO SCH ×2 (10:00→21:49)
[2021-11-05] MEDS: ZINC SULFATE 220mg CAP or TAB PO SCH (10:00)
[2021-11-05] MEDS: DexAMETHasone SOD PHOS 10MG/1ML VIAL INJ IV SCH (10:00)
[2021-11-05] MEDS: ISOSORBIDE MONONITRATE 20 MG TAB PO SCH ×2 (10:00→21:47)
[2021-11-05] MEDS: BACLOFEN 10 MG TAB PO PRN ×2 (10:51→20:20)
[2021-11-05 12:30] VITALS: BP 112/69
[2021-11-05] MEDS: REMDESIVIR 100mg 100 MG in SODIUM CHL 0.9% 230 ML IV SCH (15:00)
[2021-11-05] MEDS: HYDROcodone-ACET 5/325MG TAB PO PRN (15:09)
[2021-11-05 17:00] VITALS: BP 97/61
[2021-11-05 19:35] VITALS: BP 111/66
[2021-11-05 22:00] VITALS: BP 111/66
[2021-11-05] MEDS: MORPHINE SULFATE INJECTION 2 MG/ML SYRG IV PRN (22:36)
[2021-11-06] MEDS: HYDROcodone-ACET 5/325MG TAB PO PRN ×2 (01:13→13:54)
[2021-11-06] MEDS: BACLOFEN 10 MG TAB PO PRN ×2 (04:56→17:31)
[2021-11-06 05:00] VITALS: BP 114/68
[2021-11-06] MEDS: MORPHINE SULFATE INJECTION 2 MG/ML SYRG IV PRN (06:18)
[2021-11-06 09:00] VITALS: BP 120/75
[2021-11-06] MEDS: cefTRIAXone 1GM/50ML D5W 50 ML IV SCH (09:00)
[2021-11-06 09:44] LABS: Basophils # (auto) 0 10 ^3/uL (0-0.2); Basophils % (auto) 0.1 % (0.0-2.0); Eosinophils # (auto) 0 10 ^3/uL (0-0.8); Hematocrit 26.1 % (41.0-53.0); Hemoglobin 8.8 g/dL (13.5-17.5); Lymphocytes # (auto) 0.5 10 ^3/uL (0.4-5.4); Lymphocytes % (auto) 7.6 % (10.0-50.0); Mean Corpuscular Hemoglobin 30.8 pg (28.0-32.0); Mean Corpuscular Hgb Conc. 33.9 g/dL (32.0-36.0); Mean Corpuscular Volume 90.9 fL (80.0-100.0); Monocytes # (auto) 0.3 10 ^3/uL (0-1.3); Monocytes % (auto) 4.4 % (0.0-12.0); Neutrophils # (auto) 5.7 10 ^3/uL (1.6-8.6); Neutrophils % (auto) 87.9 % (37.0-80.0); Red Blood Cells 2.87 10^6/uL (4.5-5.90); Red Cell Distribution Width 16.3 % (11.8-14.3); White Blood Cell 6.5 10^3/uL (4.4-10.8)
[2021-11-06 09:56] LABS: Potassium 3.8 mmol/L (3.5-5.1)
[2021-11-06] MEDS: LIDOCAINE 5% TOPICAL PATCH TOP SCH (10:00)
[2021-11-06] MEDS: FOLIC ACID 1 MG TAB PO SCH (10:00)
[2021-11-06] MEDS: ZINC SULFATE 220mg CAP or TAB PO SCH (10:00)
[2021-11-06] MEDS: CHOLECALCIFEROL (VITD3) 2,000 UNIT CAP/TAB PO SCH (10:00)
[2021-11-06] MEDS: DOXYCYCLINE 100 MG TAB/CAP PO SCH (10:00)
[2021-11-06] MEDS: ISOSORBIDE MONONITRATE 20 MG TAB PO SCH (10:00)
[2021-11-06] MEDS: DexAMETHasone SOD PHOS 10MG/1ML VIAL INJ IV SCH (10:00)
[2021-11-06] MEDS: methIMAzole 5 MG TAB PO SCH (10:00)
[2021-11-06] MEDS: ASCORBIC ACID 1,000 MG TAB PO SCH (10:00)
[2021-11-06] MEDS: PANTOPRAZOLE 40 MG TAB PO SCH (10:00)
[2021-11-06] MEDS: SOTALOL HCL 80 MG TAB PO SCH (10:00)
[2021-11-06 10:07] LABS: Albumin 2.6 g/dL (3.4-5.0); BUN/Creatinine Ratio 23.8; Bilirubin, Total 0.4 mg/dL (0.2-1.0); Calcium 8.3 mg/dL (8.5-10.1); Total Protein 5.2 g/dL (6.4-8.2)
[2021-11-06] MEDS: ALBUTEROL SULF HFA 90MCG INH 200DOSE IN PRN (10:41)
[2021-11-06] MEDS: BUDESONIDE (INHALATION) 180 MCG IH IN SCH (10:41)
[2021-11-06 11:41] LABS: INR 1.21 (0.9-1.15)
[2021-11-06 13:00] VITALS: BP 108/77
[2021-11-06] MEDS: REMDESIVIR 100mg 100 MG in SODIUM CHL 0.9% 230 ML IV SCH (15:00)
[2021-11-06] MEDS ORDERED: ZINC220T6 PO (16:15)
[2021-11-06] MEDS ORDERED: ASCO10003 PO (16:15)
[2021-11-06] MEDS ORDERED: ALBUAER3 IN (16:15)
[2021-11-06] MEDS ORDERED: FAMO20TA10 PO (16:15)
[2021-11-06] MEDS ORDERED: DEX4T PO (16:15)
[2021-11-06] MEDS ORDERED: FOLI1TAB6 PO (16:15)
[2021-11-06] MEDS ORDERED: LEVO750T8 PO (16:15)
[2021-11-06 17:03] VITALS: BP 142/82
== END 2021-11-06 18:15 | disposition home or self-care (01) | DRG 177 ==
LOC: ER 12:04 → EDBD 12:04 → UNDOADMIN 14:50 → OVERFLOW 14:50 → DOU 16:33 → TELE 10-30 10:32 → OVERFLOW 10-30 10:32 → DOU 10-30 11:28 → TELE-EAST 10-30 11:28 → TELE 11-01 11:35 → UNDODISIN 11-06 18:50 → TELE 11-22 06:18 → DOU 11-22 06:18 → TELE 11-22 06:22
PROVIDERS: ADMIT Hospitalist; ATTEND Hospitalist
PROC: 06HY33Z Insertion of Infusion Device into Lower Vein, Percutaneous Approach (ICD-10-PCS; 2021-10-29)
PROC: 30233M1 Transfusion of Nonautologous Plasma Cryoprecipitate into Peripheral Vein, Percutaneous Approach (ICD-10-PCS; principal; 2021-10-30)
PROC: 30233K1 Transfusion of Nonautologous Frozen Plasma into Peripheral Vein, Percutaneous Approach (ICD-10-PCS; 2021-10-30)
PROC: 05HY33Z Insertion of Infusion Device into Upper Vein, Percutaneous Approach (ICD-10-PCS; 2021-10-30)
PROC: XW033E5 Introduction of Remdesivir Anti-infective into Peripheral Vein, Percutaneous Approach, New Technology Group 5 (ICD-10-PCS; 2021-11-02)
PROC: 0BBJ3ZX Excision of Left Lower Lung Lobe, Percutaneous Approach, Diagnostic (ICD-10-PCS; 2021-11-02)
DX: U07.1 COVID-19 (principal); J96.21 Acute and chronic respiratory failure with hypoxia; I50.33 Acute on chronic diastolic (congestive) heart failure; R57.0 Cardiogenic shock; R57.1 Hypovolemic shock; I21.A1 Myocardial infarction type 2; A41.89 Other specified sepsis; N17.0 Acute kidney failure with tubular necrosis; I13.0 Hypertensive heart and chronic kidney disease with heart failure and stage 1 through stage 4 chronic kidney disease, or unspecified chronic kidney disease; J98.11 Atelectasis; K76.6 Portal hypertension; R04.2 Hemoptysis; K74.69 Other cirrhosis of liver; E87.5 Hyperkalemia; D69.6 Thrombocytopenia, unspecified; J43.9 Emphysema, unspecified; E05.90 Thyrotoxicosis, unspecified without thyrotoxic crisis or storm; R91.8 Other nonspecific abnormal finding of lung field; E03.9 Hypothyroidism, unspecified; E16.2 Hypoglycemia, unspecified; E66.9 Obesity, unspecified; E78.5 Hyperlipidemia, unspecified; I27.21 Secondary pulmonary arterial hypertension; I45.10 Unspecified right bundle-branch block; I48.0 Paroxysmal atrial fibrillation; B19.20 Unspecified viral hepatitis C without hepatic coma; D69.59 Other secondary thrombocytopenia; E53.8 Deficiency of other specified B group vitamins; M17.0 Bilateral primary osteoarthritis of knee; I73.9 Peripheral vascular disease, unspecified; R42 Dizziness and giddiness; Z95.810 Presence of automatic (implantable) cardiac defibrillator; Z90.49 Acquired absence of other specified parts of digestive tract; Z82.49 Family history of ischemic heart disease and other diseases of the circulatory system
CPT/HCPCS: 10005; 36415; 36556; 36600; 71045; 71101; 71250; 76775; 77012; 80048; 80053; 80061; 80202; 80307; 81001; 82306; 82570; 82607; 82728; 82746; 82805; 82962; 83036; 83540; 83550; 83605; 83615; 83735; 83880; 83970; 84100; 84132; 84156; 84300; 84443; 84484; 84550; 85007; 85014; 85018; 85025; 85027; 85379; 85384; 85610; 85730; 86141; 86850; 86900; 86901; 87040; 87070; 87077; 87086; 87186; 87205; 93005; 93306; 93970; 94640; 96365; 96368; 96375; 99291; G0378; J0696; J1100; J2250; J2405; J7060; P9047